=== PATIENT | female | born 1945 | race Caucasian/White ===

== ENCOUNTER → 2019-03-18 16:36 | Outpatient (CLI) | payer MEDICARE, SELFPAY | PROVIDERS: Referring Provider Otolaryngology Otolaryngology/Facial Plastic Surgery; Visit Provider Otolaryngology Otolaryngology/Facial Plastic Surgery | DX: J02.9 Acute pharyngitis, unspecified (principal) | CPT/HCPCS: 87070; 87186 ==

== ENCOUNTER → 2020-04-21 | Outpatient (CLI) | payer MEDICARE, OTHER, SELFPAY ==
--- NOTE | 2020-04-21 | TISS_PTH ---
PATIENT: SHANNON MCCORD [facility]: [facility] U#:[id number] AGE/SX: 75/F ROOM: RE04/21/[address]: Dr. Jarrod Castro DDS : 1945 BED: DIS: 04/21/2020 SPEC #: [id number] RECD: 04/21/20 13:46 STATUS: SUNG RECatrina #: [id number] LUKAS: 04/21/20 00:[address]: Jarrod Castro DEPT: SURGICAL PATHOLOGY RECD BY: Angela Castorena ENTERED: 04/22/20 08:24 SP TYPE: Tissue Bx OTHR DR: No Primary Care Phys Tissues: Maxilla, NOS Procedures: Surgery Specimen Level IV HEADER OPERATION: Biopsy maxilla PRE-OP DIAGNOSIS: TISSUE SUBMITTED: Probable granulation/granuloma tissue from previous surgery many years ago. See if metallic substance in biopsy specimen is possible foreign body MICROSCOPIC DIAGNOSIS Maxilla, tooth area 7, biopsy: Fragments of dense fibroconnective tissue with reactive changes. Negative for malignancy. See comment. PUNEET:lizzy 04/25/20 COMMENT A few fragments black amorphous material are noted. Case has been reviewed in consultation with Dr. Silva who concurs with the above diagnosis. IDC:AM MICROSCOPIC DESCRIPTION Slides are reviewed. GROSS DESCRIPTION Received in fixative is one container labeled with the patient's name and designated tooth area 7. The specimen consists of two irregular fragments of barron, indurated tissue that in aggregate measure 0.8 x 0.3 x 0.2 cm. The specimen is totally submitted in one cassette. / PUNEET:lizzy 04/22/20 TC:5 CPT: 32873
== END | disposition home or self-care (01) ==
LOC: LABSPEC 13:59
PROVIDERS: Visit Provider Dentist Oral and Maxillofacial Surgery
DX: L94.9 Localized connective tissue disorder, unspecified (principal)
CPT/HCPCS: 88305

== ENCOUNTER → 2020-07-08 06:18 | Outpatient (CLI) | payer MEDICARE, OTHER, SELFPAY ==
--- NOTE | 2020-07-08 06:24 | ECHOD_ITS ---
Reason For Study: Chest Pain Procedure This was a 2D Doppler, Color Flow transthoracic echocardiogram. The study was technically difficult. Exam performed in department. Left Ventricle Normal LV size. Left ventricular systolic function is normal. The estimated ejection fraction is 65 %. No evidence for diastolic dysfunction. No regional wall motion abnormalities noted. Right Ventricle Normal RV size. Normal systolic function. Atria Normal left atrium. Normal right atrium. No doppler evidence for ASD. Mitral Valve There is mild mitral annular calcification. Mild focal mitral valve calcification of the anterior leaflet. Mild (1+) mitral valve insufficiency. Tricuspid Valve Normal tricuspid valve. Mild (1+) tricuspid valve insufficiency. Right ventricular systolic pressure estimated to be 29 mmHg. Aortic Valve Trisinus/trileaflet aortic valve. Mild focal aortic valve calcification. Mild (1+) aortic valve insufficiency. Pulmonic Valve The pulmonic valve is not well visualized. Great Vessels Normal sized aortic root. Pericardium/Pleural No pericardial effusion. MMode/2D Measurements & Calculations LVIDd: 4.2 cm IVSd: 1.3 cm Ao root diam: 3.2 cm LVIDs: 2.6 cm LVPWd: 1.2 cm LA dimension: 3.0 cm RVDd: 2.5 cm FS: 37.8 % LAV(MOD-bp): 38.4 ml LVAd ap4: 18.6 cm2 SV(MOD-sp4): 29.7 ml LAV(MOD-bp) Indexed: 22.6 ml/m2 EDV(MOD-sp4): 43.3 ml LAV(MOD-sp2): 45.9 ml EDV(sp4-el): 44.7 ml LAV(MOD-sp4): 27.9 ml LVAs ap4: 9.2 cm2 ESV(MOD-sp4): 13.6 ml ESV(sp4-el): 13.5 ml EF(MOD-sp4): 68.6 % EF(sp4-el): 69.7 % SV(sp4-el): 31.2 ml LA A4 area: 12.0 cm2 RA A4 area: 9.7 cm2 Doppler Measurements & Calculations MV E max flavio: 50.6 cm/sec Lat Peak E' Flavio: 9.4 cm/sec Med Peak E' Flavio: 6.5 cm/sec MV A max flavio: 85.7 cm/sec E/E' lat: 5.4 E/E' med: 7.8 MV E/A: 0.59 Ao V2 max: 148.4 cm/sec AI max flavio: 436.6 cm/sec LV V1 max: 120.0 cm/sec Ao max P.8 mmHg AI max P.4 mmHg LV V1 max P.8 mmHg Ao V2 mean: 106.3 cm/sec AI dec slope: 267.4 cm/sec2 Ao mean P.9 mmHg AI P1/2t: 478.3 msec Ao V2 VTI: 31.0 cm PA V2 max: 103.0 cm/sec TR max flavio: 253.0 cm/sec TR max P.6 mmHg Interpretation Summary The study was technically difficult. Left ventricular systolic function is normal. The estimated ejection fraction is 65 %. There is mild mitral annular calcification. Mild focal mitral valve calcification of the anterior leaflet. Mild (1+) mitral valve insufficiency. Mild (1+) tricuspid valve insufficiency. Mild focal aortic valve calcification. Mild (1+) aortic valve insufficiency. Right ventricular systolic pressure estimated to be 29 mmHg. No evidence for diastolic dysfunction. Ordering Physician: Maribell Sanchez Referring Physician: Maribell Sanchez Performed By: Danielle Gaffney, RDCS, RVT
--- NOTE | 2020-07-08 08:55 | STRESSREP ---
Stress Test Report Date: 07-08-2020 Procedure: Pharmacologic stress nuclear imaging study Indications: Chest pain; shortness of breath/dyspnea on exertion Consent: Per the patient Procedure: The patient underwent pharmacologic (Regadenoson 0.4mg ) evaluation with a peak heart rate of 91 beats per minute (62%predicted maximal heart rate) and a peak blood pressure of 144/82 mmHg. The baseline ECG demonstrated normal sinus rhythm. The peak pharmacologic ECG demonstrated no obvious ECG changes. There were no cardiac dysrhythmias pretest, during pharmacologic infusion, or recovery. There was no complaint of chest discomfort during pharmacologic infusion or recovery. The examination was discontinued secondary to completion of protocol. Impression: 1. Pharmacologic (Regadenoson) evaluation 2. Peak pharmacologic ECG with no obvious ECG changes. 3. There were no cardiac dysrhythmias pretest, during pharmacologic infusion, or recovery. 4. Nuclear images pending Myocardial perfusion imaging study: Technique: The patient was injected with 11.7 millicuries of technetium 99m Cardiolite and subsequently rest SPECT Cardiolite nuclear imaging was obtained in the horizontal long, vertical long, and short axis views. The patient underwent pharmacologic (Regadenoson) evaluation with a peak heart rate of 91 beats per minute (62% percent predicted maximal heart rate) and a peak blood pressure of 144/82 mmHg. The patient was injected with 36.0 millicuries of technetium 99m Cardiolite and subsequently stress SPECT Cardiolite nuclear imaging was obtained in the horizontal long, vertical long, and short axis views. A gated Cardiolite study at peak stress was obtained. Interpretation: Rest and stress SPECT Cardiolite nuclear imaging status post realignment, normalization, and attenuation correction demonstrate relative uniform tracer uptake and myocardial perfusion appearing within normal limits. There is end systolic thickening and brightening. The gated Cardiolite study demonstrates myocardial thickening and inward wall motion. The reported LVEF is 82%. Impression: 1. Rest and stress SPECT Cardiolite nuclear imaging demonstrate relative uniform tracer uptake and myocardial perfusion appearing within normal limits. 2. The gated Cardiolite study reports an LVEF of 82%. This note was generated with AI Merchant[employer] software. It may contain incorrect words, spelling, and punctuation that were not noted in checking the note before signing.
== END ==
PROVIDERS: PCP Internal Medicine; Referring Provider Internal Medicine; Visit Provider Internal Medicine
DX: R07.9 Chest pain, unspecified (principal); R06.00 Dyspnea, unspecified
CPT/HCPCS: 78452; 93017; 93306; A9500; A4216; J2785

== ENCOUNTER 2020-08-20 01:03 | Emergency (ER) | payer MEDICARE, OTHER, SELFPAY ==
[2020-08-20 01:05] VITALS: BP 181/95; PULSE 75; RESP 18; TEMP 36.3; O2SAT 98; BMI 32.0
--- NOTE | 2020-08-20 01:05 | ED.RN ---
NO OLD EKGS IN MUSE
--- NOTE | 2020-08-20 01:12 | RAD_ITS ---
STUDY: X-RAY CHEST REASON FOR EXAM: Female, 75 years old. chest pain TECHNIQUE: Single AP portable view of the chest. COMPARISON: None. FINDINGS: The lungs are clear and expanded. There is no demonstrated pleural abnormality. Normal size heart. Normal mediastinum and sabi. Normal visualized pulmonary arteries. Normal visualized aortic arch and descending thoracic aorta. Normal visualized thoracic spine. Normal visualized ribs, clavicles, and shoulders. There is no demonstrated abnormality of the visualized soft tissue structures of the upper abdomen. RAD/Chest 1 View (Portable) IMPRESSION: Normal x-ray examination of the chest. Electronically Signed: Elvin Rapp DO at 1:46 EDT Tel , Service support ,
--- NOTE | 2020-08-20 01:12 | EKG12_ITS ---
Test Reason : CP Blood Pressure : / mmHG Vent. Rate : 077 BPM Atrial Rate : 077 BPM P-R Int : 138 ms QRS Dur : 076 ms QT Int : 382 ms P-R-T Axes : 033 014 035 degrees QTc Int : 432 ms Normal sinus rhythm Nonspecific ST abnormality Abnormal ECG Confirmed by BETO MINER, FLY ([id number]), editor continuity and script ABDOULAYE PAGE ([id number]) on 08/24/2020 10:51:42 AM Referred By: PHIL Confirmed By:FLY PÉREZ MD
--- NOTE | 2020-08-20 01:14 | ED.DCSUM_ITS ---
History of Present Illness Chief Complaint: Chest Pain Informant: Patient, Family Onset: Yesterday Narrative: Patient presents with discomfort epigastric region wrapping around to her back since yesterday morning. Symptoms waxing and waning throughout the day however never went away. She states she is nauseated, no vomiting. No diarrhea. Denies pain into the chest region. States feels tightness. History of hypertension hyperlipidemia. Reported history of TIA in the 90s. She does not take aspirin. She is on blood pressure cholesterol and reflux medicine. Denies any cardiac history. States symptoms 6 out of 10 however tolerable. Reports history of cholecystectomy, was able to eat little bit today. Symptoms more worsening this evening. States this evening she closed her head eyes did transiently feel the room spinning, however denies none currently. Patient just had a nuclear stress test and echocardiogram July 03 of this year. Normal nuclear stress echo with EF of 65%, there is 1+ insufficiency of the aortic mitral and tricuspid valve noted on the report. Prior similar symptoms: Yes Past Medical History - Allergies and Home Meds Allergies/Adverse Reactions: Allergies codeine Adverse Reaction (Verified 08/20/20 01:05) Nausea Primary Care Physician: Maribell Sanchez MD [Primary Care Provider] - Past Medical History: - - Hypertension, hyperlipidemia, GERD, TIA Surgical History: cholecystectomy Review of Systems General: Denies: Chills, Fever, Sweats Eyes: Denies: Visual changes - bilaterally, Diplopia ENT: Denies: Rhinorrhea, Sore throat Cardiovascular: Denies: Chest pain, Palpitations Respiratory: Denies: Dyspnea, Cough, Dyspnea on exertion Gastrointestinal: Reports: Abdominal pain, Nausea. Denies: Vomiting, Diarrhea, Melena, Hematochezia Genitourinary: Denies: Dysuria, Hematuria, Frequency Musculoskeletal: Denies: Back pain, Extremity Pain Skin: Denies: Rash, Wounds Neurological: Denies: Headache, Weakness, Numbness Physical Exam Vital Signs/Narrative: Vital Signs Temp Pulse Resp BP Pulse Ox 08/20/20 01:05 97.4 F L 75 18 181/95 H 98 Inital Vital Signs reviewed: Yes General: Well nourished - ., Well developed, No Acute Distress Head: Normocephalic, Atraumatic Eyes: Perrl, EOMI ENT: Moist mucous membranes, No rhinorrhea Neck: Supple, Nontender Cardiovascular: Regular rate, Regular rhythm, No murmurs Respiratory: No distress, CTA bilaterally, Chest nontender Abdomen: Soft, Nondistended, Normal bowel sounds, Tender, - - Reproducible epigastric tenderness no guarding or rebound, negative Gomez's or McBurney's tenderness. Back: Nontender, Normal Inspection Extremities: Nontender, No edema Skin: Normal color, No rash Neurological: Alert, Oriented x3, Cranial nerves II-XII grossly intact, Normal Strength, Normal Sensation Psychological: Normal affect, Normal Mood Diagnostic/Tx/Re-eval Chest X-Ray - ED: 1 View, Read by ED Physician, Read by Radiologist, No Acute Disease Clinical Impression(s) from Imaging Studies Chest X-Ray 08/20/20 01:12 IMPRESSION: Normal x-ray examination of the chest. Electronically Signed: Elvin Rapp DO at 1:46 EDT Tel , Service support , Abnormal Lab Results 08/20/20 08/20/20 08/20/20 01:10 01:10 01:10 WBC 8.3 RBC 3.63 L Hgb 11.2 L Hct 35.0 L MCV 96.4 MCH 30.9 MCHC 32.0 RDW Std Deviation 54.1 H RDW Coeff of Bradley 15.3 H Plt Count 221 MPV 8.9 Immature Gran % (Auto) 0.200 Neut % (Auto) 45.5 L Lymph % (Auto) 41.6 H [place] % (Auto) 10.0 Eos % (Auto) 2.2 Baso % (Auto) 0.5 Absolute Neuts (auto) 3.8 Absolute Lymphs (auto) 3.44 Nucleated RBC % 0 PT 12.7 INR 1.0 APTT 30.8 Sodium 137 Potassium 3.9 Chloride 107 Carbon Dioxide 26.0 Anion Gap 4 L BUN 20 H Creatinine 0.99 Estim Creat Clear Calc 38.83 Est GFR (MDRD) Af Amer 70 Est GFR (MDRD) Non-Af 58 L BUN/Creatinine Ratio 20.1 H Glucose 112 H Calcium 9.1 Total Bilirubin 0.30 AST 22 ALT 38 Alkaline Phosphatase 99 Troponin I < 0.015 Total Protein 7.7 Albumin 3.7 Globulin 4.0 Albumin/Globulin Ratio 0.9 Lipase 255 - EKG Initial EKG Interpretation: Sinus Rhythm - EKG sinus rate of 77, no ST or T wave changes. - Medical Decision Making Patient epigastric tenderness with no guarding or rebound. EKG cardiac work-up negative I did obtain abdominal labs also normal. Is given Zofran for reevaluation states symptoms mildly worsen. Given GI cocktail with improvement of symptoms. She states has been recent dealing with diarrhea worked up with her PCP as an outpatient with stool studies negative. She is placed on pantoprazole at that time daily. She denies any melena or rectal bleed. Discussed at this time will increase her pantoprazole to twice a day we will add Carafate for 2 weeks. She does have cardiac risk factors, she had a normal stress test less than 2 months ago, I discussed with patient obtain a delta troponin however she declines at this time. Reevaluation abdomen was soft and benign. She will follow-up with her PCP with strict return precautions. All questions were answered. ED Disposition - Plan for ED Patient: Disposition: Home or Assisted Living Diagnosis: Atypical chest pain, Gastritis Instructions: ED Chest Pain, Uncertain Cause, ED Gastritis (Adult) Prescriptions: Sucralfate [Carafate] 1 gm PO 4X/DAY #60 tab Transmission Status: Pending to [id number] Referrals: Maribell Sanchez MD [Primary Care Provider] - 5-7 Days Additional Instructions: increase your pantopropazole to twice a day for next 2 weeks
[2020-08-20 01:18] LABS: Absolute Lymphocyte Count 3.44 X10^3/uL (0.83-4.51); Absolute Neutrophil Count 3.8 X10^3/uL (2.0-7.7); Basophil# 0.04 X10^3/uL; Basophil% 0.5 % (0-1); Eosinophil# 0.18 X10^3/uL; Eosinophils% 2.2 % (0-5); Hemoglobin 11.2 g/dL (12.0-15.0); Lymphocyte # 3.44 X10^3/ul (4.0); Lymphocyte % 41.6 % (19-41); Mean Corpuscular Hgb 30.9 pg (27.0-32.0); Mean Corpuscular Volume 96.4 fL (81-99); Mean Platelet Vol. 8.9 fl (6.2-12.0); Monocyte# 0.83 X10^3/uL; NRBC Flagged by Analyzer 0 % (0-5); Neutrophil # 3.75 X10^3/uL (2.7-7.7); Neutrophil % 45.5 % (47-70); Platelet Count 221 K/mm3 (150-450); RBC Distribution Width CV 15.3 % (11.6-14.6); RBC Distribution Width SD 54.1 fl (35.1-43.9); Red Blood Count 3.63 M/mm3 (4.2-5.4); White Blood Count 8.3 K/mm3 (4.4-11.0)
[2020-08-20] MEDS: Ondansetron 4 MG/2 ML Vial IV (01:20)
[2020-08-20 01:27] LABS: Prothrombin Time (Protime)PT. 12.7 SECONDS (11.7-14.9)
[2020-08-20 01:28] LABS: Partial Thromboplast Time 30.8 Seconds (24.1-36.2)
[2020-08-20 01:33] LABS: ALB/GLOB Ratio 0.9 RATIO (0.9-2.4); AST(SGOT) 22 U/L (15-37); Alanine Aminotransfer ALT/SGPT 38 U/L (13-56); Albumin, Serum 3.7 g/dL (3.2-5.0); Alkaline Phosphatase 99 U/L (45-117); Anion Gap 4 (5-15); BUN 20 mg/dL (7-18); BUN/Creat Ratio 20.1 RATIO (10-20); Calcium,Total 9.1 mg/dL (8.5-10.1); Chloride 107 mmol/L (98-107); Creatinine, Serum 0.99 mg/dL (0.55-1.02); EST Glomerular Filtration Rate 58 mL/min (>60); Est Glom Filt Rate - Afr Amer 70 mL/min (>60); Estimated Creatinine Clearance 38.83 ml/min; Glucose 112 mg/dL (74-106); Lipase 255 U/L (73-393); Potassium 3.9 mmol/L (3.5-5.1); Protein, Total 7.7 g/dL (6.4-8.2); Sodium Level 137 mmol/L (136-145)
[2020-08-20] MEDS: Mag Hydrox/Al Hydrox/Simeth 30 ML UDC PO (02:08)
[2020-08-20 02:30] VITALS: BP 148/91; PULSE 72; RESP 16; O2SAT 95
== END 2020-08-20 02:34 | disposition home or self-care (01) ==
PROVIDERS: Emergency Provider Emergency Medicine; PCP Internal Medicine
DX: K29.70 Gastritis, unspecified, without bleeding (principal); R07.89 Other chest pain; I10 Essential (primary) hypertension; E78.5 Hyperlipidemia, unspecified; K21.9 Gastro-esophageal reflux disease without esophagitis; Z79.899 Other long term (current) drug therapy
CPT/HCPCS: 71045; 80053; 83690; 84484; 85025; 85610; 85730; 93005; 96361; 96374; 99285; J7040; A4216; J2405

== ENCOUNTER → 2021-04-10 | Outpatient (CLI) | payer MEDICARE, OTHER, SELFPAY ==
[2021-04-10 16:07] LABS: D-Dimer Quantitative (DVT/PE) 0.99 FEU/ug/m (0.27-0.49)
== END | disposition home or self-care (01) ==
LOC: LABSPEC 15:06
PROVIDERS: PCP Internal Medicine; Visit Provider Nurse Practitioner
DX: R06.02 Shortness of breath (principal); R07.9 Chest pain, unspecified
CPT/HCPCS: 85379

== ENCOUNTER 2021-06-22 10:23 | Emergency (ER) | payer MEDICARE, OTHER, SELFPAY ==
[2021-06-22 10:23] VITALS: BP 169/91; PULSE 79; RESP 18; TEMP 35.7; O2SAT 98; BMI 27.4
--- NOTE | 2021-06-22 10:46 | EKG12_ITS ---
Test Reason : CP Blood Pressure : / mmHG Vent. Rate : 075 BPM Atrial Rate : 075 BPM P-R Int : 146 ms QRS Dur : 074 ms QT Int : 380 ms P-R-T Axes : 044 002 031 degrees QTc Int : 424 ms Normal sinus rhythm Normal ECG Confirmed by VITA MINER, PJ ([id number]), field map editor ABDOULAYE PAGE ([id number]) on 06/23/2021 10:58:23 AM Referred By: ALICIA Confirmed By:PJ GORMAN MD
--- NOTE | 2021-06-22 10:52 | RAD_ITS ---
STUDY: X-RAY CHEST REASON FOR EXAM: Female, 76 years old. Chest pain TECHNIQUE: Single AP portable view of the chest. COMPARISON: Comparison is made with prior study dated 08/20/2020. FINDINGS: EKG electrodes are seen. Stable mild increased linear markings at the lung bases suggest some mild basilar scarring. There is no demonstrated pleural abnormality. There is borderline cardiomegaly. Normal mediastinum and sabi. Normal visualized pulmonary arteries. There is atherosclerotic tortuosity of the aortic arch and descending thoracic aorta. Normal visualized thoracic spine. Normal visualized ribs, clavicles, and shoulders. There is no demonstrated abnormality of the visualized soft tissue structures of the upper abdomen. RAD/Chest 1 View (Portable) IMPRESSION: Findings suggestive of mild bibasilar scarring. Electronically Signed: Raheel Parikh MD at 11:03 EST ,
[2021-06-22 10:56] LABS: Absolute Neutrophil Count 3.1 X10^3/uL (2.0-7.7); Basophil# 0.04 X10^3/uL; Basophil% 0.7 % (0-1); Eosinophil# 0.21 X10^3/uL; Eosinophils% 3.5 % (0-5); Hematocrit 37.2 % (37-47); Hemoglobin 12.6 g/dL (12.0-15.0); Lymphocyte % 36.2 % (19-41); Mean Corp Hgb Conc 33.9 g/dL (32-36); Mean Corpuscular Hgb 33.8 pg (27.0-32.0); Mean Corpuscular Volume 99.7 fL (81-99); Mean Platelet Vol. 9.2 fl (6.2-12.0); Monocyte# 0.56 X10^3/uL; Monocyte% 9.2 % (0-10); NRBC Flagged by Analyzer 0 % (0-5); Neutrophil # 3.05 X10^3/uL (2.7-7.7); Neutrophil % 50.2 % (47-70); Platelet Count 218 K/mm3 (150-450); RBC Distribution Width CV 14.3 % (11.6-14.6); RBC Distribution Width SD 52.4 fl (35.1-43.9); Red Blood Count 3.73 M/mm3 (4.2-5.4); White Blood Count 6.1 K/mm3 (4.4-11.0)
[2021-06-22 11:17] LABS: Anion Gap 5 (5-15); BUN 18 mg/dL (7-18); BUN/Creat Ratio 16.8 RATIO (10-20); Calcium,Total 9.4 mg/dL (8.5-10.1); Chloride 110 mmol/L (98-107); Creatinine, Serum 1.07 mg/dL (0.55-1.02); EST Glomerular Filtration Rate 53 mL/min (>60); Est Glom Filt Rate - Afr Amer 64 mL/min (>60); Estimated Creatinine Clearance 35.38 ml/min; Glucose 109 mg/dL (74-106); Potassium 3.9 mmol/L (3.5-5.1); Sodium Level 139 mmol/L (136-145); Troponin-I HS 4 pg/mL (3.0-54.0)
--- NOTE | 2021-06-22 11:19 | ED.VIS.CHEST ---
HPI History of Present Illness Chief Complaint: Chest Pain Narrative Narrative: 76-year-old female with history of TIA, hypertension, GERD, COPD, hyperlipidemia presenting with chest pain. She states that she has had chest pain multiple times in the past and has been evaluated in the emergency room many times. Patient states that she moved from [place] about a year ago and has established with a primary care physician, however on her last visit she states that she coughed 1 time and that her primary care physician told her she might had Covid and did a telephone visit over the phone. She states she has not had anything done by her primary care physician. Patient states that her chest pain is similar to what she has in the past. She describes heaviness in the center of her chest which lasts a couple of minutes in which she gets sweaty and lightheaded. She does have a mild headache. She noted today that her blood pressure was elevated at home, and her daughter believes that her blood pressure cuff is not working right because it always reads higher than the one she has when she checks her. Patient states that she is never had a stress test. She has had an echocardiogram and was told she has no cardiac problems. She does report a history of TIA in [place]. PFSH PFSH Home Medications calcium carbonate 600 mg PO DAILY 08/20/20 [History Last Taken Unknown] citalopram 20 mg PO DAILY 08/20/20 [History Last Taken Unknown] losartan 100 mg PO DAILY 08/20/20 [History Last Taken Unknown] meloxicam 7.5 mg PO DAILY 08/20/20 [History Last Taken Unknown] multivitamin 1 each PO DAILY 08/20/20 [History Last Taken Unknown] pantoprazole 40 mg PO DAILY 08/20/20 [History Last Taken Unknown] sucralfate 1 gm PO 4X/DAY #60 tab 08/20/20 [Rx Last Taken Unknown] amlodipine 5 mg PO DAILY #30 tab 06/22/21 [Rx Last Taken Unknown] Allergy/AdvReac Type Severity Reaction Status Date / Time codeine AdvReac Nausea Verified 06/22/21 10:27 Social History Smoking Status: Former smoker ROS ROS ED Constitutional Constitutional ED: Denies chills or fever(s) Eyes Eyes: Denies blurry vision or change in vision ENT ENT ED: Denies rhinorrhea or sore throat Cardiovascular Cardiovascular: Reports as per HPI Respiratory/Chest Respiratory/Chest: Denies cough or dyspnea on exertion Gastrointestinal Gastrointestinal: Denies abdominal pain, nausea or vomiting Genitourinary Genitourinary ED: Denies dysuria or hematuria Musculoskeletal Musculoskeletal: Denies arthralgias or myalgias Integumentary Denies rash Neurologic Neurologic: Reports headache(s); Denies paresthesias or weakness Psychiatric Psychiatric: Reports anxiety EXAM Physical Exam Const Vital Signs: 06/22/21 10:23 06/22/21 10:33 06/22/21 11:25 Temperature 96.3 F L Temperature Source Temporal Pulse Rate 79 Respiratory Rate 18 Respiratory Effort Normal Non-Labored Blood Pressure 169/91 H Blood Pressure Mean 117 Pulse Ox 98 Oxygen Delivery Method Room Air Room Air 06/22/21 12:27 06/22/21 13:29 Temperature Temperature Source Pulse Rate 67 66 Respiratory Rate 20 H 25 H Respiratory Effort Blood Pressure 154/91 H 147/89 H Blood Pressure Mean 112 108 Pulse Ox 95 97 Oxygen Delivery Method Room Air Room Air Positive well nourished and obese General Appearance ED: NAD; Negative for pallor Nutritional Appearance: obese HEENT Reports moist mucous membranes normocephalic and atraumatic Eyes PERRL and EOMs intact bilaterally Chest Wall inspection of chest normal and palpation of chest normal Resp normal respiratory effort Effort and Inspection: respiratory distress Cardio regular rate and regular rhythm GI normal to inspection, nondistended, normoactive bowel sounds Neuro oriented x3 and CN's II-XII intact bilaterally Sensorium / Orientation: awake and alert Motor Exam: strength 5/5 throughout Psych mental status grossly normal Skin no rashes or lesions noted and no wounds General Skin Exam: Negative for jaundice or pallor Heart Score History: Moderately Suspicious ECG: Normal Age: >/= 65 years Troponin: >/=3 x Normal Limit Score: 5 MDM MDM MDM Narrative Medical decision making narrative: Patient presenting with intermittent chest pain which sounds chronic however she has had exacerbation of this for weeks. EKG is obtained and on my interpretation this is a normal sinus rhythm with ventricular rate of 75 bpm without sign of ischemic change or dysrhythmia. Chest x-ray on my interpretation shows no acute cardiopulmonary process the radiologist agree. CBC is unremarkable. BMP shows a slight change from 58-53. High-sensitivity troponin initially is 4. Delta troponin to be obtained. CT of the brain is negative for acute intracranial process but does show chronic subdural hygromas as well as chronic involutional changes. Patient requested ibuprofen for her headache. Blood pressure is currently 147/89. I spoke with Dr. Sanchez about her elevated blood pressures. She recommended starting amlodipine 5 mg daily. Patient prescribed a prescription for this. She will take this in addition to her losartan. Patient is to keep a diary of her blood pressures at home. She has follow-up next Saturday. Patient given return precautions. Impression: 1. Headache 2. Hypertension?established [id number] 3. Chest pain noncardiac Lab Data Attestation: I reviewed the patient's lab results. Labs: Laboratory Results - last 24 hr 06/22/21 06/22/21 06/22/21 10:30 10:30 12:31 WBC 6.1 RBC 3.73 L Hgb 12.6 Hct 37.2 MCV 99.7 H MCH 33.8 H MCHC 33.9 RDW Std Deviation 52.4 H RDW Coeff of Bradley 14.3 Plt Count 218 MPV 9.2 Immature Gran % (Auto) 0.200 Neut % (Auto) 50.2 Lymph % (Auto) 36.2 [place] % (Auto) 9.2 Eos % (Auto) 3.5 Baso % (Auto) 0.7 Absolute Neuts (auto) 3.1 Absolute Lymphs (auto) 2.20 Nucleated RBC % 0 Sodium 139 Potassium 3.9 Chloride 110 H Carbon Dioxide 24.0 Anion Gap 5 BUN 18 Creatinine 1.07 H Estim Creat Clear Calc 35.38 Est GFR (MDRD) Af Amer 64 Est GFR (MDRD) Non-Af 53 L BUN/Creatinine Ratio 16.8 Glucose 109 H Calcium 9.4 Troponin I High Sens 4 5 Radiography Diagnostic Testing: Clinical Impression(s) from Imaging Studies Chest X-Ray 06/22/21 10:52 IMPRESSION: Findings suggestive of mild bibasilar scarring. Electronically Signed: Raheel Parikh MD at 11:03 EST , Brain CT 06/22/21 11:20 IMPRESSION: Chronic involutional changes of the brain. Small chronic bilateral subdural hygromas. Electronically Signed: Raheel Parikh MD at 11:50 EST , Discharge Plan Triage Chief Complaint: Chest Pain Other Complaint: Hypertension ED Provider: Pankaj Hwang Dx/Rx/DC Orders Instructions: ED Chest Pain, Noncardiac, ED Hypertension, Established Prescriptions: New amlodipine 5 mg tablet 5 mg PO DAILY Qty: 30 RF: 0 No Action multivitamin 1 EACH tablet 1 each PO DAILY RF: 0 meloxicam 7.5 MG tablet 7.5 mg PO DAILY RF: 0 calcium carbonate 600 MG tablet 600 mg PO DAILY RF: 0 citalopram 20 MG tablet 20 mg PO DAILY RF: 0 pantoprazole 40 MG tablet 40 mg PO DAILY RF: 0 losartan 100 MG tablet 100 mg PO DAILY RF: 0 sucralfate 1 GM tablet 1 gm PO 4X/DAY Qty: 60 RF: 0 Primary Care Provider: Maribell Sanchez Referrals: Maribell Sanchez MD [Primary Care Provider] - Disposition Disposition: Home, Self Care
--- NOTE | 2021-06-22 11:20 | CT_ITS ---
STUDY: CT BRAIN WITHOUT CONTRAST REASON FOR EXAM: Female, 76 years old. Headache RADIATION DOSAGE (If Supplied By Facility): CTDIvol = ( 44.99 ) mGy, DLP = ( 796.11 ) mGycm TECHNIQUE: Transaxial CT imaging of the brain was performed without administration of intravenous contrast material. Individualized dose optimization techniques were used for this CT. COMPARISON: No relevant priors. FINDINGS: Normal soft tissue structures. Normal calvarium. There is moderate cerebral atrophy with widening of the extra-axial spaces and ventricular dilatation. Prominence of the subdural spaces bilaterally suggestive of chronic subdural hygromas. There are areas of decreased attenuation within the white matter tracts of the supratentorial brain, consistent with microvascular disease changes. Normal basal ganglia and thalami. Normal brainstem. Normal cerebellum. There is no intracranial hemorrhage. There are no findings of an acute ischemic infarction. Atherosclerotic calcification of the cavernous portions of the internal carotid arteries and vertebral arteries. Normal visualized paranasal sinuses. CT/Brain/Head without Contrast IMPRESSION: Chronic involutional changes of the brain. Small chronic bilateral subdural hygromas. Electronically Signed: Raheel Parikh MD at 11:50 EST ,
[2021-06-22 12:27] VITALS: BP 154/91; PULSE 67; RESP 20; O2SAT 95
[2021-06-22 12:54] LABS: Troponin-I HS 5 pg/mL (3.0-54.0)
[2021-06-22 13:29] VITALS: BP 147/89; PULSE 66; RESP 25; O2SAT 97
[2021-06-22] MEDS: amLODIPine 5 MG Tablet PO (13:32)
== END 2021-06-22 13:38 | disposition home or self-care (01) ==
PROVIDERS: Emergency Provider Student in an Organized Health Care Education/Training Program; PCP Internal Medicine; Visit Provider Student in an Organized Health Care Education/Training Program
DX: I10 Essential (primary) hypertension (principal); J44.9 Chronic obstructive pulmonary disease, unspecified; R51.9 Headache, unspecified; R07.89 Other chest pain; E78.5 Hyperlipidemia, unspecified; E66.9 Obesity, unspecified; K21.9 Gastro-esophageal reflux disease without esophagitis; Z79.899 Other long term (current) drug therapy; Z86.73 Personal history of transient ischemic attack (TIA), and cerebral infarction without residual deficits; Z87.891 Personal history of nicotine dependence
CPT/HCPCS: 36415; 70450; 71045; 80048; 84484; 85025; 93005; 99285; A4216

== ENCOUNTER → 2022-05-30 | Outpatient (CLI) | payer MEDICARE, OTHER, SELFPAY ==
[2022-05-30 17:58] LABS: Hematocrit 38.4 % (37-47); Hemoglobin 12.5 g/dL (12.0-15.0); Mean Corp Hgb Conc 32.6 g/dL (32-36); Mean Corpuscular Hgb 33.3 pg (27.0-32.0); Mean Corpuscular Volume 102.4 fL (81-99); Mean Platelet Vol. 9.4 fl (6.2-12.0); Platelet Count 205 K/mm3 (150-450); RBC Distribution Width CV 13.8 % (11.6-14.6); RBC Distribution Width SD 52.5 fl (35.1-43.9); Red Blood Count 3.75 M/mm3 (4.2-5.4); White Blood Count 7.3 K/mm3 (4.4-11.0)
[2022-05-30 18:13] LABS: Vitamin B12 389 pg/mL (211-911)
[2022-05-30 18:22] LABS: Glucose 106 mg/dL (74-106)
[2022-05-30 18:23] LABS: ALB/GLOB Ratio 0.9 RATIO (0.9-2.4); AST(SGOT) 31 U/L (15-37); Alanine Aminotransfer ALT/SGPT 41 U/L (13-56); Albumin, Serum 3.6 g/dL (3.2-5.0); Alkaline Phosphatase 87 U/L (45-117); Anion Gap 7 (5-15); BUN 13 mg/dL (7-18); Calcium,Total 9.2 mg/dL (8.5-10.1); Chloride 105 mmol/L (98-107); Creatinine, Serum 0.81 mg/dL (0.55-1.02); EST Glomerular Filtration Rate 72 mL/min (>60); Est Glom Filt Rate - Afr Amer 88 mL/min (>60); Globulin 4.1 g/dL (2.2-4.2); Potassium 4.1 mmol/L (3.5-5.1); Protein, Total 7.7 g/dL (6.4-8.2); Sodium Level 139 mmol/L (136-145); Thyroid Stim Hormone (TSH) 1.19 uIU/mL (0.358-3.74)
[2022-06-02 17:07] LABS: Free Kappa Light Chains 38.2 mg/L (3.3-19.4); Free Lambda Light Chains 25.7 mg/L (5.7-26.3)
[2022-06-03 09:20] LABS: Vitamin B1, Thiamine 99.8 nmol/L (66.5-200.0)
== END | disposition home or self-care (01) ==
PROVIDERS: PCP Internal Medicine; Referring Provider Psychiatry & Neurology Neurology; Visit Provider Psychiatry & Neurology Neurology
DX: G62.9 Polyneuropathy, unspecified (principal); F03.90 Unspecified dementia, unspecified severity, without behavioral disturbance, psychotic disturbance, mood disturbance, and anxiety; I10 Essential (primary) hypertension
CPT/HCPCS: 36415; 80053; 82607; 82746; 83883; 84425; 84443; 85027

== ENCOUNTER → 2022-06-19 | Outpatient (CLI) | payer MEDICARE, OTHER, SELFPAY ==
--- NOTE | 2022-06-19 15:33 | MRI_ITS ---
STUDY: MRI BRAIN WITHOUT CONTRAST REASON FOR EXAM: Female, 77 years old. 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 COMPARISON: CT head 06/22/2021. BRAIN AND EXTRA-AXIAL SPACES: No intracranial mass, mass effect, or midline shift. No hemorrhage, territorial infarct or acute ischemia. Trace T2 signal hyperintensity in the white matter consistent with microvascular ischemia. Mild cerebral atrophy with widening of the extra-axial spaces and ventricular dilation. Basal cisterns are unremarkable. SELLA: Pituitary gland is normal in height. AUDITORY SYSTEM: Unremarkable. BONES/JOINTS: Unremarkable. SINUSES: Unremarkable as visualized. Clear. MASTOID AIR CELLS: Unremarkable as visualized. Clear. ORBITS: Unremarkable as visualized. VASCULATURE: Normal flow voids in the major intracranial circulation. MRI/Brain without Contrast IMPRESSION: 1. No acute findings. 2. Trace microvascular ischemic changes. Atrophy. Electronically Signed: Frannie Olvera MD at 17:55 EST Reading Location ID and State: [id number] / Tel , Service support ,
== END | disposition home or self-care (01) ==
LOC: MRI 15:33
PROVIDERS: PCP Internal Medicine; Visit Provider Psychiatry & Neurology Neurology
DX: F03.90 Unspecified dementia, unspecified severity, without behavioral disturbance, psychotic disturbance, mood disturbance, and anxiety (principal)
CPT/HCPCS: 70551

== ENCOUNTER → 2022-10-02 | Outpatient (CLI) | payer MEDICARE, OTHER, SELFPAY ==
[2022-10-05 14:10] LABS: Albumin 3.8 g/dL (2.9-4.4); Alpha-1-Globulins 0.2 g/dL (0.0-0.4); Gamma Globulin 1.2 g/dL (0.4-1.8); Immunofixation Urine Comment: (.); Immunoglobulin A 475 mg/dL (64-422); Immunoglobulin G 1149 mg/dL (586-1602); Immunoglobulin M 52 mg/dL (26-217); PROEL- TOTAL PROTEIN 7.6 g/dL (6.0-8.5)
== END | disposition home or self-care (01) ==
LOC: MTLAB 14:58
PROVIDERS: PCP Internal Medicine; Referring Provider Psychiatry & Neurology Neurology; Visit Provider Psychiatry & Neurology Neurology
DX: G62.9 Polyneuropathy, unspecified (principal)
CPT/HCPCS: 36415; 82784; 84165; 86334; 86335

== ENCOUNTER → 2023-01-31 | Outpatient (CLI) | payer MEDICARE, OTHER, SELFPAY ==
--- NOTE | 2023-01-31 14:16 | RAD_ITS ---
INDICATION: low back pain; prior lumbar surgery EXAMINATION/TECHNIQUE: X-RAY - XR Spine Lumbar 2 or 3 Views: AP and lateral views COMPARISON: No comparison imaging received FINDINGS: Posterior spinal fusion hardware spanning from L3 through bilateral sacroiliac joints. Hardware appears intact, with adjacent osseous graft material. Status post discectomy L3-4 and L4-5. No acute fracture identified. Preserved lumbar lordosis with mild levoscoliosis. Symmetric bilateral hips with preserved joint spaces. Nonobstructive bowel gas pattern. Atherosclerotic calcifications noted. RAD/Lumbar Spine 2 or 3 Views IMPRESSION: Postop changes lumbosacral spine as described above with mild levoscoliotic curvature. Electronically Signed: Ivan Price MD at 5:26 EDT ,
== END | disposition home or self-care (01) ==
LOC: MTRAD 14:15
PROVIDERS: PCP Internal Medicine; Visit Provider Psychiatry & Neurology Neurology
DX: M54.50 Low back pain, unspecified (principal)
CPT/HCPCS: 72100

== ENCOUNTER → 2023-03-14 | Outpatient (CLI) | payer MEDICARE, OTHER, SELFPAY ==
--- NOTE | 2023-03-14 11:05 | NEURO ---
NCS and/or EMG Patient Report Ordering Doctor: Sarabjit Martinez DATE OF SERVICE: 03/14/23 Clinical Summary: This is a 77 year old female presenting with complaints of numbness in the distal lower extremities. This EMG/NCS was performed to evaluate for peripheral polyneuropathy. Nerve Conduction Studies Summary: All SNAP's were absent bilaterally. The left peroneal-EDB CMAP amplitude was reduced. The right peroneal motor conduction velocity was reduced. The tibial and peroneal F-wave onset latencies were prolonged bilaterally. Needle Examination Summary: Needle examination demonstrates increased insertional activity and/or spontaneous activity (positive sharp waves) in the medial gastrocnemius and flexor digitorum longus muscles bilaterally. There was a higher proportion of motor unit action potentials with reduced recruitment, increased amplitude, increased duration, and polyphasia in the right vastus lateralis, bilateral tibialis anterior, bilateral peroneus longus, and right flexor digitorum longus muscles. Reduced motor unit firing rates were seen in the left flexor digitorum longus, which can be seen in the setting of pain intolerance and/or reduced effort. Impression: There is electrodiagnostic evidence of the following - 1) Predominantly axonal, length-dependent, peripheral polyneuropathy with active denervation 2) Chronic, right L4 radiculopathy Procedures Neurology CF Procedures [id number]: 64387-87 Musc test done w/n test comp (interp) (2) Multi Select Codes Neurology Neurology Interp Codes: 10146-92 Musc test done w/n test comp (interp) (2) and 61595-63 Nr cnd test 9-10 studies (interp)
== END | disposition home or self-care (01) ==
LOC: PSN 09:24
PROVIDERS: PCP Internal Medicine; Referring Provider Psychiatry & Neurology Neurology; Visit Provider Psychiatry & Neurology Neurology
DX: M54.16 Radiculopathy, lumbar region (principal); G62.9 Polyneuropathy, unspecified
CPT/HCPCS: 95886; 95911

== ENCOUNTER 2023-04-25 13:13 | Emergency (ER) | payer MEDICARE, OTHER, SELFPAY ==
[2023-04-25 13:14] VITALS: BP 136/78; PULSE 78; RESP 14; TEMP 36.3; O2SAT 99; BMI 28.3
--- NOTE | 2023-04-25 13:45 | RAD_ITS ---
STUDY: X-RAY - LEFT ELBOW REASON FOR EXAM: Female, 78 years old. Elbow pain following a fall. TECHNIQUE: 4 view(s) of the elbow. COMPARISON: None. FINDINGS: Nondisplaced fracture of the radial head. Normal radiocapitellar and ulnotrochlear articulations. Small elbow joint effusion. RAD/Elbow min 3 Views IMPRESSION: Nondisplaced fracture of the radial head with evidence of a joint effusion. Electronically Signed: Raheel Parikh MD at 14:32 EST ,
--- NOTE | 2023-04-25 13:45 | RAD_ITS ---
STUDY: X-RAY - LEFT WRIST REASON FOR EXAM: Female, 78 years old. Pain following a fall. TECHNIQUE: 3 view(s) of the wrist were obtained. COMPARISON: None. FINDINGS: Tiny bony density is seen adjacent to the ulnar styloid. This may represent a tiny avulsion. Normal radiocarpal articulation. Normal distal radioulnar articulation. Normal carpal bones. Normal carpal articulations. Normal carpometacarpal articulation of the thumb. Normal second through fifth carpometacarpal articulations. Normal visualized metacarpal bones. Soft tissue swelling. RAD/Wrist min 3 Views IMPRESSION: Tiny bony fragment adjacent to the ulnar styloid suggestive of a tiny avulsion fracture. Overlying soft tissue swelling. Electronically Signed: Raheel Parikh MD at 14:31 EST ,
--- NOTE | 2023-04-25 13:45 | RAD_ITS ---
STUDY: X-RAY - LEFT SHOULDER REASON FOR EXAM: Female, 78 years old. Shoulder pain following a fall. TECHNIQUE: 4 view(s) of the shoulder. COMPARISON: None. FINDINGS: Normal glenohumeral articulation. Normal acromioclavicular joint. Normal acromion. Normal humeral head and visualized proximal humerus. The soft tissue structures are unremarkable. Normal visualized pulmonary apex. RAD/Shoulder min 2 Views IMPRESSION: Normal x-ray examination of the shoulder. Electronically Signed: Raheel Parikh MD at 14:33 EST ,
--- NOTE | 2023-04-25 13:49 | EX.ED.UPPERE ---
HPI History of Present Illness Chief Complaint: Upper Extremity Injury Detail of Chief Complaint: Fall with injury to left arm Informant: patient Narrative Narrative: Patient presents to the emergency department with a fall that occurred yesterday. Patient states that she was in a hurry and lost her balance and fell on the concrete. Deny striking her head or loss of consciousness. She injured her left arm. She is right-hand dominant. Denies any other injuries. [facility] Medical History (Updated 04/25/23 @ 14:[address] Mat Mcghee, ) Altered bowel habits Colonoscopy planned COPD (chronic obstructive pulmonary disease) Dyslipidemia Hiatal hernia Hypertension Memory change Neuropathic pain of both feet Peripheral nerve disease Spondylolisthesis, lumbar region Stroke Home Medications calcium carbonate 600 mg calcium (1,500 mg) tablet 600 mg PO DAILY 08/20/20 [History Last Taken Unknown] losartan 100 mg tablet 100 mg PO DAILY 08/20/20 [History Last Taken Unknown] multivitamin 1 each PO DAILY 08/20/20 [History Last Taken Unknown] pantoprazole 40 mg tablet,delayed release 40 mg PO DAILY 08/20/20 [History Last Taken Unknown] amlodipine 5 mg tablet 5 mg PO DAILY #30 tabs 06/22/21 [Rx Last Taken Unknown] citalopram 20 mg tablet 20 mg PO DAILY 05/30/22 [History Last Taken Unknown] dicyclomine 10 mg capsule 10 mg PO TID PRN 05/30/22 [History Last Taken Unknown] hyoamine PO 05/30/22 [History Last Taken Unknown] umeclidinium 62.5 mcg-vilanterol 25 mcg/actuation powdr for inhalation (Anoro Ellipta) 1 inh inhalation DAILY 05/30/22 [History Last Taken Unknown] zolpidem 10 mg tablet PO 05/30/22 [History Last Taken Unknown] amitriptyline 10 mg tablet 10 mg PO QHS #30 tabs 01/31/23 [Rx Last Taken Unknown] flurbiprofen 100 mg tablet 100 mg PO TID PRN pain #90 tabs 01/31/23 [Rx Last Taken Unknown] hydrocodone-acetaminophen 5-325mg 5mg-325mg 1 tab PO Q4H PRN PRN Pain 2 days #10 TABLETS 04/25/23 [Rx Last Taken Unknown] ondansetron 4 mg disintegrating tablet 4 mg PO Q8H PRN PRN Nausea #10 tabs 04/25/23 [Rx Last Taken Unknown] Allergy/AdvReac Type Severity Reaction Status Date / Time codeine AdvReac Intermediate Nausea Verified 04/25/23 13:13 diphenhydramine AdvReac Intermediate Nausea Verified 04/25/23 13:13 [From Benadryl] Family History Other COPD (chronic obstructive pulmonary disease) CVA (cerebral vascular accident) Colon cancer Heart disease Surgical History H/O bilateral oophorectomy H/O lithotripsy H/O: hysterectomy History of back surgery History of esophagogastroduodenoscopy (EGD) Social History Smoking Status: Former smoker ROS ROS ED Review of Systems ROS Unobtainable: other Constitutional Constitutional ED: Reports lethargy; Denies chills, fever(s), sweats or weight loss Eyes Eyes: Denies blurry vision, change in vision or diplopia ENT ENT ED: Denies rhinorrhea or sore throat Cardiovascular Cardiovascular: Denies chest pain, orthopnea or racing heartbeat Respiratory/Chest Respiratory/Chest: Denies cough, dyspnea, dyspnea on exertion, orthopnea or sputum Gastrointestinal Gastrointestinal: Denies abdominal pain, diarrhea, nausea or vomiting Genitourinary Genitourinary ED: Denies dysuria, hematuria or urinary frequency Musculoskeletal Musculoskeletal: Reports other Details: Left wrist, left elbow, and left shoulder pain ; Denies arthralgias, back pain, myalgias or neck pain Integumentary Denies abscess, Abrasions or rash Neurologic Neurologic: Denies headache(s) or weakness Psychiatric Psychiatric: Denies anxiety, depression or suicidal thoughts Endocrine Endocrinology: Denies polydipsia, polyphagia or polyuria Hematologic/Lymphatic Hematologic/Lymphatic: Denies easy bleeding, easy bruising or lymphadenopathy Allergic/Immunologic Allergic/Immunologic ED: Denies mouth swelling, tongue swelling or urticaria EXAM Physical Exam Const Vital Signs: 04/25/23 13:14 Temperature 97.3 F L Temperature Source Temporal Pulse Rate 78 Respiratory Rate 14 Blood Pressure 136/78 H Blood Pressure Mean 97 Pulse Ox 99 Oxygen Delivery Method Room Air Positive well nourished and well developed General Appearance ED: well developed and NAD HEENT Reports TM's clear and moist mucous membranes normocephalic and atraumatic; Negative for trauma or tenderness Tympanic Membrane ED: Yes TM's clear Eyes PERRL and EOMs intact bilaterally General Eye ED: Negative for pale conjunctiva or scleral icterus Neck no lymphadenopathy, supple and no JVD General: Negative for tenderness Chest Wall inspection of chest normal and palpation of chest normal Chest: Negative for tenderness Resp normal respiratory effort and clear to auscultation bilaterally Effort and Inspection: Negative for respiratory distress or pain with movement Auscultation: Negative for rhonchi, wheezes or diminished lung sounds Cardio regular rate, regular rhythm, S1 normal heart sound, S2 normal heart sound and no murmurs Peripheral Pulses: pulses 2+ throughout GI normal to inspection, nondistended, normoactive bowel sounds, soft to palpation, non-tender, non-distended and no masses Back/Spine no CVA tenderness and no thoracic nor lumbar tenderness Extremity normal to inspection Extremity Narrative: Left arm-patient has ecchymosis and bruising diffusely about the dorsum of the left hand and wrist with tenderness to palpation. No obvious deformity. She is neurovascular intact distally. Patient has diffuse tenderness over the left elbow especially at the radial head with tenderness to palpation and pain with pronation and supination. Patient has tenderness over the left glenohumeral joint. No obvious deformity. She is neurovascular intact distally. General Extremety ED: Negative for edema General Extremity: Negative for edema Neuro oriented x3, CN's II-XII intact bilaterally, no sensory deficits noted and gait normal Sensorium / Orientation: awake, alert, oriented to person, oriented to place and oriented to time Motor Exam: strength 5/5 throughout and strength abnormal Psych mental status grossly normal Skin no rashes or lesions noted and no wounds MDM MDM MDM Narrative Medical decision making narrative: Patient presents with fall and injury to the left upper extremity. X-rays of the left wrist as well as elbow and left shoulder were obtained. Patient has a small avulsion fracture from the ulnar styloid and a radial head fracture. Patient will be placed in a wrist splint and given a sling for her arm. She will be referred to orthopedics on-call for follow-up. Patient advised to ice and elevate the extremity. She will be given a prescription for a few Martinez for pain. Patient also given a prescription for Zofran. Radiography Diagnostic Testing: Three-view x-rays of the left wrist obtained interpreted by myself as no obvious fracture or dislocation. Radiology did note a small avulsion fracture from the styloid of the ulna three-view x-rays of the left Three-view x-ray of left elbow obtained interpreted by myself as fracture of the radial head relatively nondisplaced. Radiology in agreement. 2 view x-rays of the left shoulder obtained interpreted by myself as no evidence of fracture or dislocation. Radiology in agreement. Discharge Plan Triage Chief Complaint: Upper Extremity Injury ED Provider: Mat Mcghee Dx/Rx/DC Orders Clinical Impression: Closed fracture of radial head, Shoulder sprain, Fracture of ulnar styloid Instructions: ED Radial Head Fracture, Wrist Fracture ED, ED Shoulder Sprain Prescriptions: New hydrocodone-acetaminophen [hydrocodone-acetaminophen] 5-325 mg tablet 1 tab PO Q4H PRN PRN (Reason: Pain) 2 Days Qty: 10 0RF ondansetron [ondansetron] 4 mg tablet,disintegrating 4 mg PO Q8H PRN PRN (Reason: Nausea) Qty: 10 0RF No Action dicyclomine 10 mg capsule 10 mg PO TID PRN Anoro Ellipta 62.5-25 mcg/actuation blister with device 1 inh inhalation DAILY zolpidem 10 mg tablet PO hyoamine PO citalopram 20 mg tablet 20 mg PO DAILY flurbiprofen 100 mg tablet 100 mg PO TID PRN (Reason: pain) Qty: 90 4RF amitriptyline 10 mg tablet 10 mg PO QHS Qty: 30 5RF multivitamin 1 EACH tablet 1 each PO DAILY calcium carbonate 600 MG tablet 600 mg PO DAILY pantoprazole 40 MG tablet 40 mg PO DAILY losartan 100 MG tablet 100 mg PO DAILY amlodipine 5 mg tablet 5 mg PO DAILY Qty: 30 0RF Primary Care Provider: Maribell Sanchez Referrals: Maribell Sanchez MD [Primary Care Provider] - Larry Boudreaux DO [Med Staff - Active Staff] - 3-5 Days Disposition Disposition: Home, Self Care Discharge Date/Time: 04/25/23 15:00
== END 2023-04-25 15:00 | disposition home or self-care (01) ==
PROVIDERS: Emergency Provider Emergency Medicine; PCP Internal Medicine; Visit Provider Emergency Medicine
DX: S52.122A Displaced fracture of head of left radius, initial encounter for closed fracture (principal); J44.9 Chronic obstructive pulmonary disease, unspecified; S52.612A Displaced fracture of left ulna styloid process, initial encounter for closed fracture; S43.402A Unspecified sprain of left shoulder joint, initial encounter; W19.XXXA Unspecified fall, initial encounter; Z86.73 Personal history of transient ischemic attack (TIA), and cerebral infarction without residual deficits; Z87.891 Personal history of nicotine dependence
CPT/HCPCS: 73030; 73080; 73110; 99283

== ENCOUNTER → 2023-06-04 | Outpatient (CLI) | payer MEDICARE, OTHER, SELFPAY | END | disposition home or self-care (01) | LOC: MTLAB 14:53 | PROVIDERS: PCP Internal Medicine; Referring Provider Psychiatry & Neurology Neurology; Visit Provider Psychiatry & Neurology Neurology | DX: G62.9 Polyneuropathy, unspecified (principal) | CPT/HCPCS: 86335 ==

== ENCOUNTER 2024-02-27 11:14 | Emergency (ER) | payer MEDICARE, OTHER, SELFPAY ==
[2024-02-27] VITALS (7 sets, daily range): BP systolic 110–183; BP diastolic 60–98; PULSE 78–94; RESP 16–20; TEMP 36.6; O2SAT 94–100; BMI 29.3
--- NOTE | 2024-02-27 11:59 | EDS_ITS ---
HPI History of Present Illness Chief Complaint: Allergic Reaction Informant: patient, spouse/S.O. and EMS Narrative Narrative: 78-year-old female with Crohn's disease was an outpatient infusion center getting an infusion of Renflexis for her Crohn's, when apparently she lost consciousness and according to EMS was having an allergic reaction. She was given Benadryl and epinephrine. She states she feels better now although she is a little sleepy from the Benadryl and has some mild swelling sensation in her throat but not her tongue, she appears a little dyspneic but denies it, saying that my breathing is just a little funny. She denies any chest discomfort or other symptoms right now. Family states she had a mild reaction to this during her last infusion which was 2 or [address] [facility] Medical History Memory change Altered bowel habits Neuropathic pain of both feet Spondylolisthesis, lumbar region Colonoscopy planned Stroke Peripheral nerve disease Hypertension Hiatal hernia Dyslipidemia COPD (chronic obstructive pulmonary disease) Home Medications ?Medication ?Instructions ?Recorded ?Last Taken ?Type calcium carbonate 600 mg PO DAILY 08/20/20 Unknown History losartan 100 mg tablet 100 mg PO DAILY 08/20/20 Unknown History multivitamin 1 each PO DAILY 08/20/20 Unknown History pantoprazole 40 mg tablet,delayed 40 mg PO DAILY 08/20/20 Unknown History release amlodipine 5 mg tablet 5 mg PO DAILY #30 tabs 06/22/21 Unknown Rx citalopram 20 mg tablet 20 mg PO DAILY 05/30/22 Unknown History dicyclomine 10 mg capsule 10 mg PO TID PRN 05/30/22 Unknown History hyoamine PO 05/30/22 Unknown History umeclidinium 62.5 mcg-vilanterol 1 inh inhalation DAILY 05/30/22 Unknown History 25 mcg/actuation powdr for inhalation (Anoro Ellipta) zolpidem 10 mg tablet PO 05/30/22 Unknown History hydrocodone-acetaminophen 5-325mg 1 tab PO Q4H PRN PRN Pain 2 days 04/25/23 Unknown Rx 5mg-325mg #10 TABLETS ondansetron 4 mg disintegrating 4 mg PO Q8H PRN PRN Nausea #10 tabs 04/25/23 Unknown Rx tablet pregabalin 150 mg capsule 150 mg PO BID #60 caps 06/04/23 Unknown Rx pregabalin 75 mg capsule 75 mg PO BID #28 caps 06/04/23 Unknown Rx epinephrine 0.3 mg/0.3 mL 0.3 mg (0.3 mL) IM Q10M PRN PRN 02/27/24 Unknown Rx injection, auto-injector anaphylaxis #2 ea prednisone 10 mg tablet 10 mg PO UD #38 tabs 02/27/24 Unknown Rx Allergy/AdvReac Type Severity Reaction Status Date / Time infliximab-abda (From Allergy Severe Anaphylaxis Verified 02/27/24 14:42 Renflexis) codeine AdvReac Intermediate Nausea Verified 02/27/24 11:15 diphenhydramine (From AdvReac Intermediate Nausea Verified 02/27/24 11:15 Benadryl) Family History Other COPD (chronic obstructive pulmonary disease) CVA (cerebral vascular accident) Colon cancer Heart disease Surgical History H/O: hysterectomy H/O bilateral oophorectomy H/O lithotripsy History of esophagogastroduodenoscopy (EGD) History of back surgery Social History Smoking Status: Former smoker ROS ROS ED Constitutional Constitutional ED: Reports fatigue; Denies chills or fever(s) Eyes Eyes: Denies change in vision or diplopia ENT ENT ED: Reports throat swelling; Denies rhinorrhea or sore throat Cardiovascular Cardiovascular: Denies chest pain, leg edema or palpitations Respiratory/Chest Respiratory/Chest: Reports as per HPI; Denies cough or dyspnea Gastrointestinal Gastrointestinal: Denies abdominal pain, diarrhea, nausea or vomiting Genitourinary Genitourinary ED: Denies dysuria or hematuria Musculoskeletal Musculoskeletal: Denies back pain or neck pain Integumentary Denies abscess or rash Neurologic Neurologic: Denies headache(s), paresthesias or weakness Psychiatric Psychiatric: Denies suicidal thoughts EXAM Physical Exam Const Vital Signs: 02/27/24 11:15 02/27/24 11:24 02/27/24 12:12 Temperature 97.8 F Temperature Source Temporal Pulse Rate 90 Respiratory Rate 20 H Respiratory Effort Labored Respiratory Depth Shallow Respiratory Pattern Tachypnea Blood Pressure 183/98 H Blood Pressure Mean 126 Pulse Ox 97 95 Oxygen Delivery Method Room Air Room Air Room Air 02/27/24 12:12 02/27/24 12:15 02/27/24 13:00 Temperature Temperature Source Pulse Rate 88 91 94 Respiratory Rate 18 18 16 Respiratory Effort Respiratory Depth Respiratory Pattern Blood Pressure 151/91 H 110/60 Blood Pressure Mean 111 76 Pulse Ox 94 98 Oxygen Delivery Method Room Air Room Air 02/27/24 14:00 Temperature Temperature Source Pulse Rate 90 Respiratory Rate 16 Respiratory Effort Respiratory Depth Respiratory Pattern Blood Pressure 113/66 Blood Pressure Mean 81 Pulse Ox 94 Oxygen Delivery Method Room Air Positive well nourished and well developed General Appearance ED: well developed and NAD HEENT Reports moist mucous membranes HEENT Narrative: No tongue or lip edema. No stridor. No dysphonia. No trismus mouth is normal- appearing. normocephalic and atraumatic Eyes PERRL and EOMs intact bilaterally Neck full ROM and supple Resp clear to auscultation bilaterally Resp Narrative: Mildly tachypneic but in no respiratory distress, no wheezing and equal breath sounds present bilaterally Effort and Inspection: Negative for retractions Cardio regular rate, regular rhythm and no murmurs GI non-tender and non-distended Auscultation: normoactive bowel sounds Palpation: soft Back/Spine no CVA tenderness General Back: other FROM Extremity normal to inspection General Extremety ED: Negative for edema, pulses abnormal or tenderness General Extremity: Negative for edema or pulses abnormal Neuro oriented x3, CN's II-XII intact bilaterally and no sensory deficits noted Sensorium / Orientation: awake and alert Motor Exam: strength 5/5 throughout Psych mental status grossly normal Skin no rashes or lesions noted and no wounds MDM MDM MDM Narrative Medical decision making narrative: Patient apparently already received Solu-Medrol prior to arrival so although I ordered it was canceled. I ordered an albuterol aerosol, she is breathing better on reevaluation and denies any dyspnea. With observation for couple hours here her blood pressure came down to 113/66, she states the throat tightness is almost completely resolved she is able to swallow liquids and chew on a piece of candy without any difficulty. She wants to go home. We had a long discussion with she and significant other she understands this was potentially life-threatening reaction, certainly seems to be defervescing. I am okay with her going home, but prescribing her an EpiPen so that she has something to use if her symptoms recur. Will also put her on a 1-2 week taper of prednisone since the half life is 8-10 days. Rhythm Strip Rhythm Strip: Sinus Rhythm Rate: 85 Ectopy: None EKG Initial EKG: Attestation: I personally reviewed and interpreted this EKG as follows: Interpretation: Sinus Rhythm and No Acute Injury Pattern Comments: nml ekg Discharge Plan Triage Chief Complaint: Allergic Reaction ED Provider: Elgin Cardona Dx/Rx/DC Orders Clinical Impression: Anaphylactic reaction Instructions: ED Anaphylaxis, ED Drug Reaction, Other Prescriptions: New epinephrine 0.3 mg/0.3 mL auto-injector 0.3 mg IM Q10M PRN PRN (Reason: anaphylaxis) Qty: 2 0RF Rx Instructions: for 2 doses prednisone 10 mg tablet 10 mg PO UD Qty: 38 0RF Rx Instructions: Take 4 tablets daily for 5 days, then 3 daily for 3 days, then 2 daily for 3 days, then 1 a day for 3 days No Action dicyclomine 10 mg capsule 10 mg PO TID PRN Anoro Ellipta 62.5-25 mcg/actuation blister with device 1 inh inhalation DAILY zolpidem 10 mg tablet PO hyoamine PO citalopram 20 mg tablet 20 mg PO DAILY pregabalin 75 mg capsule 75 mg PO BID Qty: 28 0RF pregabalin 150 mg capsule 150 mg PO BID Qty: 60 4RF Rx Instructions: Begin after completing 2 week course of pregabalin 75mg twice daily. multivitamin 1 EACH tablet 1 each PO DAILY calcium carbonate 600 MG tablet 600 mg PO DAILY pantoprazole 40 MG tablet 40 mg PO DAILY losartan 100 MG tablet 100 mg PO DAILY amlodipine 5 mg tablet 5 mg PO DAILY Qty: 30 0RF hydrocodone-acetaminophen [hydrocodone-acetaminophen] 5-325 mg tablet 1 tab PO Q4H PRN PRN (Reason: Pain) 2 Days Qty: 10 0RF ondansetron [ondansetron] 4 mg tablet,disintegrating 4 mg PO Q8H PRN PRN (Reason: Nausea) Qty: 10 0RF Primary Care Provider: Maribell Sanchez Referrals: Maribell Sanchez MD [Primary Care Provider] - Activity Restrictions/Additional Instructions: Talk to your doctor about a different medication for your Crohn's other than Renflexis. Start the prednisone prescription tomorrow, 02/27. You already received the first dose of steroids for 02/26 while in the hospital. Print Language: Greenlandic Disposition Disposition: Home, Self Care
[2024-02-27] MEDS: Albuterol 2.5 MG/3 ML VIAL.NEB. INHALATION (12:08)
--- NOTE | 2024-02-27 12:25 | EKG12_ITS ---
Test Reason : Blood Pressure : / mmHG Vent. Rate : 087 BPM Atrial Rate : 087 BPM P-R Int : 142 ms QRS Dur : 074 ms QT Int : 374 ms P-R-T Axes : 064 015 058 degrees QTc Int : 450 ms Normal sinus rhythm Normal ECG Confirmed by Larry Garzon ([id number]), medical editor ABDOULAYE PAGE ([id number]) on 02/28/2024 1:36:02 PM Referred By: Elgin Cardona Confirmed By:Larry Garzon
== END 2024-02-27 15:05 | disposition home or self-care (01) ==
PROVIDERS: Emergency Provider Emergency Medicine; PCP Internal Medicine; Referring Provider Emergency Medicine; Visit Provider Emergency Medicine
DX: T78.2XXA Anaphylactic shock, unspecified, initial encounter (principal); K50.90 Crohn's disease, unspecified, without complications; J44.9 Chronic obstructive pulmonary disease, unspecified; Z87.891 Personal history of nicotine dependence; X58.XXXA Exposure to other specified factors, initial encounter; Z86.73 Personal history of transient ischemic attack (TIA), and cerebral infarction without residual deficits
CPT/HCPCS: 93005; 94640; 99284

== ENCOUNTER → 2024-03-24 | Outpatient (CLI) | payer MEDICARE, OTHER, SELFPAY ==
[2024-03-24 14:21] LABS: Amphetamine Urine VISTA NEGATIVE (<1000 ng/mL); Barbiturate Urine VISTA NEGATIVE (< 200 ng/mL); Benzodiazepine Urine VISTA NEGATIVE (< 200 ng/mL); Cocaine Urine VISTA NEGATIVE (< 300 ng/mL); Ecstacy Urine VISTA NEGATIVE (< 500 ng/mL); Methadone Urine VISTA NEGATIVE (< 300 ng/mL); PCP Urine VISTA NEGATIVE (< 25 ng/mL); THC Urine VISTA NEGATIVE (< 50 ng/mL); Vista UDS pH Range 5
== END | disposition home or self-care (01) ==
PROVIDERS: Referring Provider Anesthesiology Pain Medicine; Visit Provider Anesthesiology Pain Medicine
DX: F11.20 Opioid dependence, uncomplicated (principal)
CPT/HCPCS: 80307

== ENCOUNTER → 2024-06-22 | Outpatient (CLI) | payer MEDICARE, OTHER, SELFPAY ==
--- NOTE | 2024-06-22 08:30 | MRI_ITS ---
PROCEDURE: SPINE LUMBAR (ROUTINE) REASON FOR EXAM: Low back pain radiating to bilateral legs. TECHNIQUE: Noncontrast lumbar spine MRI. COMPARISON: Lumbar spine radiograph from 01/31/2023. FINDINGS: Lumbar vertebral bodies maintain a normal height. There is levoscoliosis of the lumbar spine. There is posterior fusion from L2 to the sacrum with associated susceptibility artifact. There are intervertebral disc spaces from L2-L4. There is grade 1 anterolisthesis of L5-S1 on a chronic basis. There is diminished signal intensity involving the visualized lumbar vertebral bodies related to degenerative disc disease. Multilevel disc space narrowing and endplate spurring is present greatest at T12-L1 and L4-L5. No acute fracture or subluxation is identified. The tip of the conus medullaris terminates at T12-L1 and signal intensity of the included spinal cord is within normal limits. There is mild atrophy of the paraspinous musculature. Individual levels: T12-L1: Disc bulge and facet arthropathy with no significant central canal stenosis. Severe left and moderate right neural foraminal narrowing is present. L1-2: Postsurgical changes with susceptibility artifact. Disc bulge and facet arthropathy with drxi-fi-[id number] central canal stenosis. Moderate to severe bilateral neural foraminal narrowing is present. L2-L3: Postsurgical changes with susceptibility artifact. Disc bulge and mild facet arthropathy with no significant central canal stenosis. Moderate left and mild right neural foraminal narrowing is present. L3-4: Postsurgical changes with susceptibility artifact. No disc herniation or central canal stenosis is present. There is suggestion of severe right and mild left neural foraminal narrowing however limitations due to susceptibility artifact. L4-5: Postsurgical changes with susceptibility artifact. Disc bulge and facet arthropathy with no significant central canal stenosis. Moderate to severe right and wewv-km-[id number] left neural foraminal narrowing is present. L5-S1: Postsurgical changes with susceptibility artifact. Grade 1 anterolisthesis with disc bulge without central canal stenosis. Severe bilateral neural foraminal narrowing is present. MRI/Spine Lumbar (Routine) IMPRESSION: 1. Postsurgical changes from posterior fusion from L2 to the sacrum with associ ated susceptibility artifact. No significant central canal stenosis is identified at these levels. Multilevel varying degre es of neural foraminal narrowing are present however suboptimal evaluation due to susceptibility artifact. 2. Ruxk-cr-mucuujwq central canal stenosis at L1-L2. Bilateral neural foramina l narrowing is present from T12-L2. Reading [facility]
== END | disposition home or self-care (01) ==
LOC: MRI 08:12
PROVIDERS: Referring Provider Anesthesiology Pain Medicine; Visit Provider Anesthesiology Pain Medicine
DX: M54.16 Radiculopathy, lumbar region (principal)
CPT/HCPCS: 72148

== ENCOUNTER → 2024-07-30 | Outpatient (CLI) | payer MEDICARE, OTHER, SELFPAY ==
[2024-07-30 11:01] LABS: Absolute Lymphocyte Count 2.42 X10^3/uL (0.83-4.51); Absolute Neutrophil Count 4.2 X10^3/uL (2.0-7.7); Basophil# 0.05 X10^3/uL; Basophil% 0.7 % (0-1); Eosinophil# 0.24 X10^3/uL; Eosinophils% 3.2 % (0-5); Hematocrit 36.4 % (37-47); Hemoglobin 12.5 g/dL (12.0-15.0); Lymphocyte # 2.42 X10^3/ul (0.83-4.51); Lymphocyte % 31.8 % (19-41); Mean Corp Hgb Conc 34.3 g/dL (32-36); Mean Corpuscular Volume 98.9 fL (81-99); Mean Platelet Vol. 9.2 fl (6.2-12.0); Monocyte# 0.68 X10^3/uL; Monocyte% 8.9 % (0-10); NRBC Flagged by Analyzer 0 % (0-5); Neutrophil # 4.19 X10^3/uL (2.7-7.7); Neutrophil % 55.1 % (47-70); Platelet Count 193 K/mm3 (150-450); RBC Distribution Width CV 13.2 % (11.6-14.6); RBC Distribution Width SD 48.3 fl (35.1-43.9); Red Blood Count 3.68 M/mm3 (4.2-5.4); White Blood Count 7.6 K/mm3 (4.4-11.0)
[2024-07-30 11:33] LABS: ALB/GLOB Ratio 1.3 RATIO (0.9-2.4); AST(SGOT) 20 U/L (<=31); Alanine Aminotransfer ALT/SGPT 15 U/L (<=34); Albumin, Serum 4.1 g/dL (3.4-4.8); Alkaline Phosphatase 78 U/L (35-104); Anion Gap 11 (5-15); BUN 17 mg/dL (4-19); Calcium,Total 9.9 mg/dL (7.6-11.0); Carbon Dioxide 24.1 mmol/L (21.0-32.0); Chloride 107 mmol/L (98-108); Creatinine, Serum 0.89 mg/dL (0.70-1.20); EST Glomerular Filtration Rate 66 (>60); Globulin 3.2 g/dL (2.2-4.2); Glucose 96 mg/dL (70-99); Protein, Total 7.4 g/dL (5.9-8.4); Sodium Level 142 mmol/L (133-145); Total Bilirubin 0.33 mg/dL (0.00-1.30)
[2024-07-31 15:08] LABS: Endomysial Antibody IgA Negative (Negative); Immunoglobulin A 420 mg/dL (64-422); t-Transglutaminase IgA <2 U/mL (0-3)
== END | disposition home or self-care (01) ==
LOC: LAB 10:26
PROVIDERS: PCP Internal Medicine
DX: K50.10 Crohn's disease of large intestine without complications (principal)
CPT/HCPCS: 36415; 80053; 82784; 83516; 85025; 86003; 86005; 86140; 86255

== ENCOUNTER → 2024-07-31 | Outpatient (CLI) | payer MEDICARE, OTHER, SELFPAY ==
[2024-08-03 01:06] LABS: Pancreatic Elastase, Fecal > 800 (>200)
== END | disposition home or self-care (01) ==
LOC: LABSPEC 10:14
PROVIDERS: PCP Internal Medicine
DX: K50.90 Crohn's disease, unspecified, without complications (principal)
CPT/HCPCS: 82274; 82653; 87493

== ENCOUNTER 2024-08-04 08:15 | Emergency (ER) | payer MEDICARE, OTHER, SELFPAY ==
[2024-08-04 08:16] VITALS: BP 163/97; PULSE 78; RESP 16; TEMP 36.7; O2SAT 97; BMI 27.8
--- NOTE | 2024-08-04 08:31 | EDS_ITS ---
HPI HPI - GI History of Present Illness Chief Complaint: Abd Pain Informant: patient and spouse/S.O. Narrative Narrative: 79-year-old female presenting to the emergency room with right-sided chest and abdominal pain. Patient states over the past 2 to 3 days she has had a sharp pain right upper quadrant right chest going into the right shoulder region. It is worse with movement. She denies any known trauma but wonders if she would mast ve injured a rib when she was lifting wheelchair into her vehicle. Patient was scheduled for capsule endoscopy today with Dr. Friend has been doing a bowel prep. She notes that she is moving her bowels appropriately. She does note some associated nausea. She is unsure if she has had prior cholecystectomy. She denies any known renal or liver disease. She does note a history of Crohn's disease as well as undifferentiated polyneuropathy. She denies any rash. No reported fevers. She notes some shortness of breath coming down the hallway. No particular cough. Because of her symptomology she was sent to the emergency by [facility] Medical History Memory change Altered bowel habits Neuropathic pain of both feet Spondylolisthesis, lumbar region Colonoscopy planned Stroke Peripheral nerve disease Hypertension Hiatal hernia Dyslipidemia COPD (chronic obstructive pulmonary disease) Home Medications ?Medication ?Instructions ?Recorded ?Last Taken ?Type calcium carbonate 600 mg PO DAILY 08/20/20 Unk nown History losartan 100 mg tablet 100 mg PO DAILY 08/20/20 Unk nown History multivitamin 1 each PO DAILY 08/20/20 Unk nown History pantoprazole 40 mg tablet,delayed 40 mg PO DAILY 08/20 Unknown History release dicyclomine 10 mg capsule 10 mg PO TID PRN 05/30/22 Un known History hyoamine PO 05/30/22 Unknown History umeclidinium 62.5 mcg-vilanterol 1 inh inhalation JEN Y 05/30/22 Unknown History 25 mcg/actuation powdr for inhalation (Anoro Ellipta) zolpidem 10 mg tablet PO 05/30/22 Unknown History hydrocodone-acetaminophen 5-325mg 1 tab PO Q4H PRN PRN Pain 2 days 04/25/23 Unknown Rx 5mg-325mg #10 TABLETS ondansetron 4 mg disintegrating 4 mg PO Q8H PRN PRN Na usea #10 tabs 04/25/23 Unknown Rx tablet epinephrine 0.3 mg/0.3 mL 0.3 mg (0.3 mL) IM Q10M PRN PRN 02/27/24 Unknown Rx injection, auto-injector anaphylaxis #2 ea colestipol 1 gram tablet 1 g PO ONCE 07/30/24 Unknown History escitalopram oxalate 20 mg tablet 20 mg PO QDAY Unknown History gabapentin 600 mg tablet 600 mg PO TID 07/30/24 Unkno wn History meloxicam 7.5 mg tablet 7.5 mg PO QDAY 07/30/24 Unkn own History Allergy/AdvReac Type Severity Reaction Status Date / Time infliximab-abda (From Allergy Severe Anaphylaxis Verified 07/30/24 09:44 Renflexis) codeine AdvReac Intermediate Nausea Verified 07/30/24 09:44 diphenhydramine (From AdvReac Intermediate Nausea Verified 07/30/24 09:44 Benadryl) Family History Other COPD (chronic obstructive pulmonary disease) CVA (cerebral vascular accident) Colon cancer Heart disease Surgical History H/O: hysterectomy H/O bilateral oophorectomy H/O lithotripsy History of esophagogastroduodenoscopy (EGD) History of back surgery Social History Smoking Status: Never smoker alcohol intake: never ROS ROS ED Constitutional Constitutional ED: Denies chills, fever(s) or weight loss Eyes Eyes: Denies change in vision or diplopia ENT ENT ED: Denies ear pain, rhinorrhea or sore throat Cardiovascular Cardiovascular: Reports chest pain; Denies orthopnea, palpitations or racing heartbeat Respiratory/Chest Respiratory/Chest: Reports dyspnea and dyspnea on exertion; Denies cough or orthopnea Gastrointestinal Gastrointestinal: Reports abdominal pain; Denies diarrhea, nausea or vomiting Genitourinary Genitourinary ED: Denies dysuria, hematuria or urinary frequency Musculoskeletal Musculoskeletal: Reports back pain; Denies arthralgias or myalgias Integumentary Denies abscess or rash Neurologic Neurologic: Denies headache(s) or weakness Psychiatric Psychiatric: Denies anxiety, depression, suicidal ideation or suicidal thoughts Endocrine Endocrinology: Denies polydipsia, polyphagia or polyuria Allergic/Immunologic Allergic/Immunologic ED: Denies mouth swelling, tongue swelling or urticaria EXAM Physical Exam Const Vital Signs: 08/04/24 08:16 08/04/24 10:08 08/04/24 12:00 Temperature 98.1 F Temperature Source Temporal Pulse Rate 78 67 69 Respiratory Rate 16 15 15 Blood Pressure 163/97 H 151/82 H 154/78 H Blood Pressure Mean 119 105 103 Pulse Ox 97 95 95 Oxygen Delivery Method Room Air Room Air Room Air 08/04/24 12:36 Temperature 97.6 F L Temperature Source Pulse Rate 71 Respiratory Rate 18 Blood Pressure 144/104 H Blood Pressure Mean 117 Pulse Ox 95 Oxygen Delivery Method Positive well nourished and well developed General Appearance ED: well developed and NAD HEENT Reports normocephalic, head/scalp atraumatic and moist mucous membranes Eyes PERRL and EOMs intact bilaterally Neck no lymphadenopathy, supple and no JVD Chest Wall Chest Narrative: Right upper and mid posterior lateral and anterior ribs are mildly tender to palpation. I do not appreciate a rash no crepitance or subcutaneous air. Resp normal respiratory effort and clear to auscultation bilaterally Cardio regular rate, regular rhythm and no murmurs GI non-distended and no masses Inspection: Negative for abdominal distention Auscultation: hyperactive bowel sounds Palpation: soft and tender RUQ Back/Spine no CVA tenderness Back/Spine Narrative: Painful range of motion when attempting to sit up on the side of the bed. Patient notes upper right thoracic region as the area that hurts. Extremity normal to inspection General Extremety ED: Negative for edema General Extremity: Negative for edema Neuro oriented x3 and CN's II-XII intact bilaterally Sensorium / Orientation: alert Motor Exam: strength 5/5 throughout Psych mental status grossly normal Mood & Affect: Negative for depressed or tearful Skin no rashes or lesions noted and no wounds MDM MDM MDM Narrative Medical decision making narrative: Differential diagnosis includes but not limited to choledocholithiasis cholecystitis shingles pneumonia pleural effusion pulmonary edema rib fracture chest wall strain abdominal muscle strain colitis Patient's blood work is rather unremarkable. Troponin is 9 white count is [address] of the abdomen pelvis as well as CTA of the chest was obtained which does not demonstrate any findings to explain the patient's symptomology. Please see radiologist read. Patient received a dose of Toradol. As well as Zofran. I spoke with the patient with the above results. I believe she can be discharged home. Would recommend supportive care and pain medication. If she is not improving or worsening she can return to emergency or see primary care. Patient is comfortable with this plan History & Record Review Discussion w/independent historian: Patient Lab Data Attestation: I reviewed the patient's lab results. Labs: Laboratory Results - last 24 hr 08/04/24 08:45 WBC 7.0 RBC 3.89 L Hgb 13.1 Hct 38.4 MCV 98.7 MCH 33.7 H MCHC 34.1 RDW Std Deviation 47.2 H RDW Coeff of Bradley 13.2 Plt Count 209 MPV 8.8 Immature Gran % (Auto) 0.900 Neut % (Auto) 55.1 Lymph % (Auto) 32.3 [place] % (Auto) 7.6 Eos % (Auto) 3.4 Baso % (Auto) 0.7 Absolute Neuts (auto) 3.9 Absolute Lymphs (auto) 2.26 Nucleated RBC % 0 Sodium 138 Potassium 3.9 Chloride 102 Carbon Dioxide 22.5 Anion Gap 13 BUN 14 Creatinine 0.96 Estim Creat Clear Calc 43.24 L Est GFR (MDRD) Non-Af 60 BUN/Creatinine Ratio 14.4 Glucose 111 H Calcium 9.7 Total Bilirubin 0.53 Direct Bilirubin 0.18 AST 23 ALT 17 Alkaline Phosphatase 78 Troponin T High Sens 9 Total Protein 7.6 Albumin 4.3 Globulin 3.3 Lipase 38 Radiography Diagnostic Testing: Clinical Impression(s) from Imaging Studies Chest CTA 08/04/24 11:00 IMPRESSION: No pulmonary embolism. Reading Location: [facility] Abdomen/Pelvis CT 08/04/24 11:11 IMPRESSION: 1. Hepatomegaly with fatty infiltration. 2. No obstructive uropathy. 3. Bilateral inguinal hernias. Reading Location: [facility] EKG Initial EKG: Attestation: I personally reviewed and interpreted this EKG as follows: Comments: Sinus rhythm with a ventricular to 69 bpm. No concerning features of ACS are noted. Prior EKG tracings: available for review Prior: Unchanged (02/27/24) Discharge Plan Triage Chief Complaint: Abd Pain ED Provider: Marky Navas Dx/Rx/DC Orders Clinical Impression: Chest pain, Abdominal pain Instructions: ED Chest Wall Strain Prescriptions: No Action dicyclomine 10 mg capsule 10 mg PO TID PRN Anoro Ellipta 62.5-25 mcg/actuation blister with device 1 inh inhalation DAILY zolpidem 10 mg tablet PO hyoamine PO meloxicam 7.5 mg tablet 7.5 mg PO QDAY colestipol 1 gram tablet 1 g PO ONCE escitalopram oxalate 20 mg tablet 20 mg PO QDAY gabapentin 600 mg tablet 600 mg PO TID multivitamin 1 EACH tablet 1 each PO DAILY calcium carbonate 600 MG tablet 600 mg PO DAILY pantoprazole 40 MG tablet 40 mg PO DAILY losartan 100 MG tablet 100 mg PO DAILY hydrocodone-acetaminophen [hydrocodone-acetaminophen] 5-325 mg tablet 1 tab PO Q4H PRN PRN (Reason: Pain) 2 Days Qty: 10 0RF ondansetron [ondansetron] 4 mg tablet,disintegrating 4 mg PO Q8H PRN PRN (Reason: Nausea) Qty: 10 0RF epinephrine 0.3 mg/0.3 mL auto-injector 0.3 mg IM Q10M PRN PRN (Reason: anaphylaxis) Qty: 2 0RF Rx Instructions: for 2 doses Primary Care Provider: Maribell Sanchez Referrals: Maribell Sanchez MD [Primary Care Provider] - 1 Week if not improving Print Language: Tunisian Disposition Disposition: Home, Self Care Discharge Date/Time: 08/04/24 12:38
--- NOTE | 2024-08-04 08:35 | EKG12_ITS ---
Test Reason : ABD PAIN Blood Pressure : */* mmHG Vent. Rate : 69 BPM Atrial Rate : 69 BPM P-R Int : 110 ms QRS Dur : 76 ms QT Int : 398 ms P-R-T Axes : 24 10 38 degrees QTcB Int : 426 ms Sinus rhythm with short DC Possible Inferior infarct , age undetermined Abnormal ECG Confirmed by BETO MINER, FLY ([id number]), editorial writer ABDOULAYE PAGE ([id number]) on 08/05/2024 8:17:54 AM Referred By: Confirmed By: FLY PÉREZ MD
[2024-08-04] MEDS: Ondansetron 4 MG/2 ML Vial IV (08:51)
[2024-08-04] MEDS: Ketorolac 15 MG/ML Vial IV (08:51)
[2024-08-04 08:55] LABS: Absolute Lymphocyte Count 2.26 X10^3/uL (0.83-4.51); Absolute Neutrophil Count 3.9 X10^3/uL (2.0-7.7); Basophil# 0.05 X10^3/uL; Basophil% 0.7 % (0-1); Eosinophil# 0.24 X10^3/uL; Eosinophils% 3.4 % (0-5); Hematocrit 38.4 % (37-47); Hemoglobin 13.1 g/dL (12.0-15.0); Lymphocyte # 2.26 X10^3/ul (0.83-4.51); Lymphocyte % 32.3 % (19-41); Mean Corp Hgb Conc 34.1 g/dL (32-36); Mean Corpuscular Hgb 33.7 pg (27.0-32.0); Mean Corpuscular Volume 98.7 fL (81-99); Mean Platelet Vol. 8.8 fl (6.2-12.0); Monocyte# 0.53 X10^3/uL; Monocyte% 7.6 % (0-10); NRBC Flagged by Analyzer 0 % (0-5); Neutrophil # 3.86 X10^3/uL (2.7-7.7); Neutrophil % 55.1 % (47-70); Platelet Count 209 K/mm3 (150-450); RBC Distribution Width CV 13.2 % (11.6-14.6); RBC Distribution Width SD 47.2 fl (35.1-43.9); Red Blood Count 3.89 M/mm3 (4.2-5.4)
[2024-08-04 09:34] LABS: Troponin T High Sensitivity 9 ng/L (<=14)
[2024-08-04 10:08] VITALS: BP 151/82; PULSE 67; RESP 15; O2SAT 95
[2024-08-04 10:31] LABS: Lipase 38 U/L (13-75)
[2024-08-04 10:52] LABS: AST(SGOT) 23 U/L (<=31); Alanine Aminotransfer ALT/SGPT 17 U/L (<=34); Albumin, Serum 4.3 g/dL (3.4-4.8); Alkaline Phosphatase 78 U/L (35-104); Anion Gap 13 (5-15); BUN 14 mg/dL (4-19); BUN/Creat Ratio 14.4 RATIO (10-20); Bilirubin, Direct 0.18 mg/dL (0.00-0.30); Calcium,Total 9.7 mg/dL (7.6-11.0); Carbon Dioxide 22.5 mmol/L (21.0-32.0); Chloride 102 mmol/L (98-108); Creatinine, Serum 0.96 mg/dL (0.70-1.20); EST Glomerular Filtration Rate 60 (>60); Estimated Creatinine Clearance 43.24 ml/min (50-250); Globulin 3.3 g/dL (2.2-4.2); Glucose 111 mg/dL (70-99); Potassium 3.9 mmol/L (3.3-5.1); Protein, Total 7.6 g/dL (5.9-8.4); Sodium Level 138 mmol/L (133-145); Total Bilirubin 0.53 mg/dL (0.00-1.30)
--- NOTE | 2024-08-04 11:00 | CT_ITS ---
EXAM: CT Angiography Chest Without and With Intravenous Contrast CLINICAL INDICATION: PAIN PULMONARY EMBOLISM TECHNIQUE: Axial computed tomographic angiography images of the chest without and with intravenous contrast. This CT exam was performed using one or more of the following dose reduction techniques: automated exposure control, adjustment of the mA and/or kV according to patient size, and/or use of iterative reconstruction technique. MIP reconstructed images were created and reviewed. COMPARISON: No relevant prior studies available. FINDINGS: PULMONARY ARTERIES: Unremarkable. No pulmonary embolism. AORTA: Scattered calcified atherosclerotic disease of aorta. No thoracic aortic aneurysm. The ascending thoracic aorta measures 4.1 cm in maximum diameter. LUNGS AND PLEURAL SPACES: Lung emphysema/COPD. No mass. No consolidation. No significant effusion. No pneumothorax. HEART: Unremarkable. No cardiomegaly. No significant pericardial effusion. No evidence of RV dysfunction. BONES/JOINTS: No acute fracture. No dislocation. SOFT TISSUES: Unremarkable. LYMPH NODES: Unremarkable. No enlarged lymph nodes. CT/CTA Chest W/WO Contrast IMPRESSION: No pulmonary embolism. Reading Location[facility]
--- NOTE | 2024-08-04 11:11 | CT_ITS ---
EXAM: CT Abdomen, Pelvis and Lumbar Spine With Intravenous Contrast CLINICAL INDICATION: RUQ PAIN TECHNIQUE: Axial computed tomography images of the abdomen, pelvis and lumbar spine with intravenous contrast. This CT exam was performed using one or more of the following dose reduction techniques: automated exposure control, adjustment of the mA and/or kV according to patient size, and/or use of iterative reconstruction technique. COMPARISON: No relevant prior studies available. FINDINGS: LUNG BASES: Lung emphysema. No consolidation. ABDOMEN: LIVER: Hepatomegaly with fatty infiltration. GALLBLADDER AND BILE DUCTS: Unremarkable. No calcified stones. No ductal dilation. PANCREAS: Unremarkable. No mass. No ductal dilation. SPLEEN: Unremarkable. No splenomegaly. ADRENALS: Unremarkable. No mass. KIDNEYS AND URETERS: Unremarkable. No stones within either kidney. No hydronephrosis. STOMACH AND BOWEL: Unremarkable. No obstruction. No mucosal thickening. PELVIS: APPENDIX: No findings to suggest acute appendicitis. BLADDER: Unremarkable. No mass. REPRODUCTIVE: Unremarkable as visualized. LUMBAR SPINE: VERTEBRAE: Unremarkable. No acute fracture. DISCS/SPINAL CANAL/NEURAL FORAMINA: Hypodense lesion in the right hemipelvis with layering calculi. This appears to be connected to the bowel. This is likely part of the bowel. If indicated, further evaluation with oral contrast may be beneficial. Extensive posterior fusion of L2 to S1 with disc spacers of L2-3 and L3-4. These results in beam hardening artifacts, which limit the evaluation of the adjacent structures. ABDOMEN and PELVIS: INTRAPERITONEAL SPACE: Unremarkable. No free air. No significant fluid collection. BONES/JOINTS: No acute fracture. No dislocation. SOFT TISSUES: Bilateral inguinal hernias. VASCULATURE: Scattered calcified atherosclerotic disease of aorta. No abdominal aortic aneurysm. LYMPH NODES: Unremarkable. No enlarged lymph nodes. CT/Abdomen/Pelvis W IV Cont ONLY IMPRESSION: 1. Hepatomegaly with fatty infiltration. 2. No obstructive uropathy. 3. Bilateral inguinal hernias. Reading Location[facility]
[2024-08-04] MEDS: Ketorolac 30 MG/ML Syringe IV (11:25)
[2024-08-04 12:00] VITALS: BP 154/78; PULSE 69; RESP 15; O2SAT 95
[2024-08-04 12:36] VITALS: BP 144/104; PULSE 71; RESP 18; TEMP 36.4; O2SAT 95
--- NOTE | 2024-08-04 12:37 | ED.RN ---
SPOKE WITH DR MEI OFFICE AND THEY WILL DO PATIENTS PROCEDURE. JC HUMPHREYS WILL WHEEL PT DOWN TO THE OFFICE.
== END 2024-08-04 12:38 | disposition home or self-care (01) ==
PROVIDERS: Emergency Provider Emergency Medicine; PCP Internal Medicine; Visit Provider Emergency Medicine
DX: R07.9 Chest pain, unspecified (principal); J44.9 Chronic obstructive pulmonary disease, unspecified; R10.9 Unspecified abdominal pain; Z86.73 Personal history of transient ischemic attack (TIA), and cerebral infarction without residual deficits
CPT/HCPCS: 71275; 74177; 80048; 80076; 83690; 84484; 85025; 93005; 96374; 96375; 96376; 99283; Q9967; A4216; J2405

== ENCOUNTER 2024-09-17 11:07 | Day surgery (SDC) | payer MEDICARE, OTHER, SELFPAY ==
--- NOTE | 2024-09-15 14:04 | PAT.ANE_ITS ---
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 When Was Last Pacemaker Check QUESTION #4 FULL TEXT: You/Your Family Experience fever (hyperthermia) with Anesthesia Last Oral Intake Last Oral intake: Last Oral Intake NPO since Meds taken in AM with sips of water? 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 Female Yes 09/15/24 12:15 HX of Motion Sickness No 09/15/24 12:15 HX of N/V After Surgery No 09/15/24 12:15 Non-Smoker Yes 09/15/24 12:15 Duration of Surgery greater No 09/15/24 12:15 than 60 minutes Number of Risk Factors 2 09/15/24 12:15 PONV Score Moderate Risk 09/15/24 12:15 Height & Weight Height & Weight: Anesthesia: Height & Weight Height 5 ft 2 in 08/04/24 08:16 Respiratory Assessment Respiratory Assessment - parking technician: Respiratory Tract Infection Hx - parking technician Hx Respiratory Tract Infection No 09/15/24 12:15 STOP Sleep Apnea STOP Sleep Apnea - parking technician: STOP Sleep Apnea - parking technician Hx Hypertension Yes 09/15/24 12:15 Hx Sleep Apnea No 09/15/24 12:15 CPAP BIPAP Do you snore loudly (louder No 09/15/24 12:15 than talking or can be heard Do you often feel tired/ No 09/15/24 12:15 fatigued/ sleepy during daytime? Has anyone observed you stop No 09/15/24 12:15 breathing during sleep? STOP Results Negative 09/15/24 12:15 QUESTION #5 FULL TEXT : Do you snore loudly (louder than talking or can be heard through closed doors)? Tobacco Use History Tobacco Use History - parking technician: Tobacco Use History - parking technician Tobacco Use Smoking Status Former smoker 09/15/24 12:15 Hx Tobacco Use No 09/15/24 12:15 Years Smoking Packs Smoked per Day Smoking Cessation Date was No - quit smoking greater 09/15/24 12:15 within the last 15 years than 15 years ago Hx Smoking Cessation Date 05/14/99 09/15/24 12:15 Hx Smoking Cessation Counseling Hematologic Medial History Hematologic Hx - parking technician: Hematologic Medical Hx - take away man Hx of Blood Transfusion No 09/15/24 12:15 Hx of Transfusion in last 3 No 09/15/24 12:15 Months Date of Last Transfusion (if within last 3 months) Ever experience any problems No 09/15/24 12:15 with transfusion(s)? Specify any problems Hx of Preganancy in last 3 No 09/15/24 12:15 Months Nurse Filling Out Transfusion [facility] 09/15/24 12:15 & Questions: Date: 09/15/24 09/15/24 12:15 Time: 12:17 09/15/24 12:15 Patient unable to answer at this time (ie. confused, unrespo /Reproduction History /Reproductive History - parking technician: /Reproductive Hx- parking technician Hx Now No 09/15/24 12:15 Gestational Age (in weeks): EDC: Hx Hx Para Hx Section [facility] Medical History (Updated 09/15/24 @ 12:26 by Magalis Romero) Wears glasses Anxiety Ambulates with cane Rheumatoid arthritis History of Crohn's disease Back pain Restless legs TIA (transient ischemic attack) History of IBS Former smoker Shortness of breath on exertion Leg cramps History of edema History of echocardiogram History of stress test Memory change Altered bowel habits Neuropathic pain of both feet Spondylolisthesis, lumbar region Colonoscopy planned Stroke Peripheral nerve disease Hypertension Hiatal hernia Dyslipidemia COPD (chronic obstructive pulmonary disease) Home Medications ?Medication ?Instructions ?Recorded ?Last Taken ?Type calcium carbonate 600 mg PO DAILY 08/20/20 Unk nown History losartan 100 mg tablet 100 mg PO DAILY 08/20/20 Unk nown History multivitamin 1 each PO DAILY 08/20/20 Unk nown History pantoprazole 40 mg tablet,delayed 40 mg PO DAILY 08/20 Unknown History release dicyclomine 10 mg capsule 10 mg PO TID PRN abdominal p ain 05/30/22 Unknown History umeclidinium 62.5 mcg-vilanterol 1 inh inhalation JEN Y 05/30/22 Unknown History 25 mcg/actuation powdr for inhalation (Anoro Ellipta) zolpidem 10 mg tablet 10 mg PO QHS PRN insomnia Unknown History ondansetron 4 mg disintegrating 4 mg PO Q8H PRN PRN Na usea #10 tabs 04/25/23 Unknown Rx tablet epinephrine 0.3 mg/0.3 mL 0.3 mg (0.3 mL) IM Q10M PRN PRN 02/27/24 Unknown Rx injection, auto-injector anaphylaxis #2 ea colestipol 1 gram tablet 1 g PO DAILY 07/30/24 Unknow n History escitalopram oxalate 20 mg tablet 20 mg PO QDAY Unknown History gabapentin 600 mg tablet 600 mg PO TID 07/30/24 Unkno wn History meloxicam 7.5 mg tablet 7.5 mg PO QDAY 07/30/24 Unkn own History sodium sul 1.479 gram-potas ch See Rx Instructions PO PER PKG DIR 08/20/24 Unknown Rx 0.188 gram-magnes sul 0.225 gram #24 tabs tablet (Sutab) Allergy/AdvReac Type Severity Reaction Status Date / Time infliximab-abda (From Allergy Severe Anaphylaxis Verified 09/15/24 12:11 Renflexis) codeine AdvReac Intermediate Nausea Verified 09/15/24 12:11 diphenhydramine (From AdvReac Intermediate Nausea Verified 09/15/24 12:11 Benadryl) Family History Other COPD (chronic obstructive pulmonary disease) CVA (cerebral vascular accident) Colon cancer Heart disease Surgical History H/O: hysterectomy H/O bilateral oophorectomy H/O lithotripsy History of esophagogastroduodenoscopy (EGD) History of back surgery Social History Smoking Status: Former smoker alcohol intake: never Audit: Pertinent Findings Pertinent Findings EKG Perinent findings: August 04, 2024. Sinus rhythm with short [place]. Possible inferior infarct, age undetermined. Stress test pertinent findings: 2020. EF of 82%. No ischemia is noted. No infarct. Echo (EF%) pertinent findings: July 08, 2020. EF of 65%. RVSP is 29 mmHg. No aortic valve stenosis noted. Recommendation Anesthesia Recommendation Anesthesia recommendation: OPTIMIZED for anesthesia
[2024-09-17] VITALS (8 sets, daily range): BP systolic 113–170; BP diastolic 69–90; PULSE 62–77; RESP 16–18; TEMP 36.1–36.3; O2SAT 92–100; BMI 26.4
--- NOTE | 2024-09-17 12:15 | EGD_PTH ---
PATIENT: SHANNON MCCORD LOC: EN U#:[id number] AGE/SX: 79/F ROOM: RE09/17/[address]: Dr. Maksim Jung DO : 1945 BED: DIS: 09/17/2024 SPEC #: [id number] RECD: 09/18/24 07:34 STATUS: SUNG RECatrina #: [id number] LUKAS: 09/17/24 12:[address]: Maksim Jung DEPT: SURGICAL PATHOLOGY RECD BY: Haja Bess ENTERED: 09/18/24 08:52 SP TYPE: EGD BIOPSY THOMAS DR: Dr. Maribell Sanchez MD Tissues: A - Gastric mucous membrane B - COLON BIOPSY Procedures: Immunohistochemical Stains Surgery Specimen Level IV HEADER OPERATION: Colonoscopy, EGD with capsule placement, biopsy PRE-OP DIAGNOSIS: Crohn's disease TISSUE SUBMITTED: A- Gastric body biopsy, B- Random colonic biopsy MICROSCOPIC DIAGNOSIS A. Stomach, gastric body, biopsy: * Antral and oxyntic mucosa with mild chronic inflammation and focal intestinal metaplasia * No morphologic evidence of Helicobacter pylori organisms on H&E and immunostained sections B. Colon, random, biopsy: * Colonic mucosa with no pathologic change MICROSCOPIC DESCRIPTION Slides are reviewed. GROSS DESCRIPTION A. Received in formalin in a container labeled with the patient's name, date of , and gastric body biopsy are 2 barron-pink fragments of mucosal tissue, each measuring 0.4 x 0.4 x 0.3 cm. Submitted in toto in A1. B. Received in formalin in a container labeled with the patient's name, date of , and random colonic biopsy are multiple barron-pink fragments of mucosal tissue measuring 1.0 x 0.8 x 0.3 cm in aggregate. Submitted in toto in B1. [facility] 09-18-2024 CPT:63907s8,02529
--- NOTE | 2024-09-17 12:22 | PCM.PRE.AN2 ---
ASA Classification* ASA Classification ASA Classification: 3 Assessment & Plan Anesthesia* Anesthesia Assessment Anesthesia Assessment: Discussed sedation and/or anesthesia options, risks, benefits, and alternatives with patient/parents/legal guardian/POA. Questions invited. The patient/parents/legal guardian/POA seems to understand and agrees to proceed with anesthesia plan. Reviewed the physical assessment, medical history, allergy history and patient home medications list prior to surgery/procedure/anesthetic and documented any changes. Performed airway and anesthesia risk assessments. Anesthesia Type Anesthesia Type: MAC History Source History Obtained from:: Patient and Chart Anesthesia Focused Assessment* Temperature: 97 F Pulse Rate: 77 Blood Pressure: 170/90 Respiratory Rate: 16 Pulse Ox: 100 Oxygen Delivery Method: Room Air Airway Assessment Mouth opens: >3 cm Mallampati Score: III Teeth Condition: Caps/Crowns (Patient has a couple of crowns. They are tight.) and Partial (Lower partial is out.) Neck Range of motion (ROM): Limited ROM (Slight decrease in extension) Focused Labs Anesthesia Preop lab: CBC WBC 7.0 K/mm3 (4.4-11.0) 08/04/24 08:45 08/04/24 RBC 3.89 M/mm3 (4.2-5.4) L 08/04/24 08:45 08/04/24 Hgb 13.1 g/dL (12.0-15.0) 08/04/24 08:45 08/04/24 Hct 38.4 % (37-47) 08/04/24 08:45 08/04/24 Plt Count 209 K/mm3 (150-450) 08/04/24 08:45 08/04/24 CHEMISTRY Potassium 3.9 mmol/L (3.3-5.1) 08/04/24 08:45 08/04/24 Sodium 138 mmol/L (133-145) 08/04/24 08:45 08/04/24 BUN 14 mg/dL (4-19) 08/04/24 08:45 08/04/24 Creatinine 0.96 mg/dL (0.70-1.20) 08/04/24 08:45 08/04/24 Glucose 111 mg/dL (70-99) H 08/04/24 08:45 08/04/24 TSH 1.19 uIU/mL (0.358-3.74) 05/30/22 16:00 05/30/22 COAG PT 12.7 SECONDS (11.7-14.9) 08/20/20 01:10 08/20/20 Pre-Assessment Diagnosis/Proposed Procedure Planned Operative Procedure(s): EGD, COLONOSCOPY Anesthesia History Anesthesia History - rn liaison: Anesthesia History - rn liaison Hx Hospitalization No 09/15/24 12:15 Any Problems With Anesthesia No 09/15/24 12:15 Cholinesterase deficiency No 09/15/24 12:15 You/Your Family Experience No 09/15/24 12:15 fever (hyperthermia) with Relationship Recent Exposure to Contagious No 09/17/24 11:30 Disease Does patient have nerve No 09/15/24 12:15 stimulator Patient instructed to have device shut off --Does patient have Pacemaker No 09/17/24 11:30 or ICD? When Was Last Pacemaker Check QUESTION #4 FULL TEXT: You/Your Family Experience fever (hyperthermia) with Anesthesia Last Oral Intake Last Oral intake: Last Oral Intake NPO since 06:00 09/17/24 11:30 Meds taken in AM with sips of Yes 09/17/24 11:30 water? Meds patient instructed to take am of surgery Any additional information?: Yes Meds taken in AM with sips of water?: Yes PONV PONV - rn liaison: PONV - rn liaison Female Yes 09/15/24 12:15 HX of Motion Sickness No 09/15/24 12:15 HX of N/V After Surgery No 09/15/24 12:15 Non-Smoker Yes 09/15/24 12:15 Duration of Surgery greater No 09/15/24 12:15 than 60 minutes Number of Risk Factors 2 09/15/24 12:15 PONV Score Moderate Risk 09/15/24 12:15 Height & Weight Height & Weight: Anesthesia: Height & Weight Height 5 ft 2 in 09/17/24 11:30 Weight: 65.6 kg 09/17/24 11:30 Body Mass Index (BMI) 26.4 09/17/24 11:30 Respiratory Assessment Respiratory Assessment - rn liaison: Respiratory Tract Infection Hx - rn liaison Hx Respiratory Tract Infection No 09/15/24 12:15 STOP Sleep Apnea STOP Sleep Apnea - rn liaison: STOP Sleep Apnea - rn liaison Hx Hypertension Yes 09/15/24 12:15 Hx Sleep Apnea No 09/15/24 12:15 CPAP BIPAP Do you snore loudly (louder No 09/15/24 12:15 than talking or can be heard Do you often feel tired/ No 09/15/24 12:15 fatigued/ sleepy during daytime? Has anyone observed you stop No 09/15/24 12:15 breathing during sleep? STOP Results Negative 09/15/24 12:15 QUESTION #5 FULL TEXT : Do you snore loudly (louder than talking or can be heard through closed doors)? 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 Specify any problems Hx of Preganancy in last 3 No 09/15/24 12:15 Months Nurse Filling Out Transfusion VLEHMAN 09/15/24 12:15 & Questions: Date: 09/15/24 09/15/24 12:15 Time: 12:17 09/15/24 12:15 Patient unable to answer at this time (ie. confused, unrespo /Reproduction History /Reproductive History - rn liaison: /Reproductive Hx- rn liaison Hx Now No 09/15/24 12:15 Gestational Age (in weeks): EDC: Hx Hx Para Hx Section SAB Active Medications Active Medications: Current Medications Generic Name Dose Route Start Last Admin Trade Name Freq PRN Reason Stop Dose Admin Lactated Ringer's 1,000 mls @ 15 mls/hr 09/17/24 11:45 IV .Q48H [facility] Medical History Wears glasses Anxiety Ambulates with cane Rheumatoid arthritis History of Crohn's disease Back pain Restless legs TIA (transient ischemic attack) History of IBS Former smoker Shortness of breath on exertion Leg cramps History of edema History of echocardiogram History of stress test Memory change Altered bowel habits Neuropathic pain of both feet Spondylolisthesis, lumbar region Colonoscopy planned Stroke Peripheral nerve disease Hypertension Hiatal hernia Dyslipidemia COPD (chronic obstructive pulmonary disease) Home Medications ?Medication ?Instructions ?Recorded ?Last Taken ?Type calcium carbonate 600 mg PO DAILY 08/20/20 Unknown History losartan 100 mg tablet 100 mg PO DAILY 08/20/20 09/17/24 06:00 History multivitamin 1 each PO DAILY 08/20/20 Unknown History pantoprazole 40 mg tablet,delayed 40 mg PO DAILY 08/20/20 Unknown History release dicyclomine 10 mg capsule 10 mg PO TID PRN abdominal pain 05/30/22 Unknown History umeclidinium 62.5 mcg-vilanterol 1 inh inhalation DAILY 05/30/22 Unknown History 25 mcg/actuation powdr for inhalation (Anoro Ellipta) zolpidem 10 mg tablet 10 mg PO QHS PRN insomnia 05/30/22 Unknown History ondansetron 4 mg disintegrating 4 mg PO Q8H PRN PRN Nausea #10 tabs 04/25/23 Unknown Rx tablet epinephrine 0.3 mg/0.3 mL 0.3 mg (0.3 mL) IM Q10M PRN PRN 02/27/24 Unknown Rx injection, auto-injector anaphylaxis #2 ea colestipol 1 gram tablet 1 g PO DAILY 07/30/24 Unknown History escitalopram oxalate 20 mg tablet 20 mg PO QDAY 07/30/24 Unknown History gabapentin 600 mg tablet 600 mg PO TID 07/30/24 Unknown History meloxicam 7.5 mg tablet 7.5 mg PO QDAY 07/30/24 Unknown History sodium sul 1.479 gram-potas ch See Rx Instructions PO PER PKG DIR 08/20/24 Unknown Rx 0.188 gram-magnes sul 0.225 gram #24 tabs tablet (Sutab) Allergy/AdvReac Type Severity Reaction Status Date / Time infliximab-abda (From Allergy Severe Anaphylaxis Verified 09/17/24 11:27 Renflexis) codeine AdvReac Intermediate Nausea Verified 09/17/24 11:27 diphenhydramine (From AdvReac Intermediate Nausea Verified 09/17/24 11:27 Benadryl) Family History Other COPD (chronic obstructive pulmonary disease) CVA (cerebral vascular accident) Colon cancer Heart disease Surgical History H/O: hysterectomy H/O bilateral oophorectomy H/O lithotripsy History of esophagogastroduodenoscopy (EGD) History of back surgery Social History Smoking Status: Former smoker alcohol intake: never Review of Systems (Anesthesia) ROS Narrative System reviewed and no additional complaints, except as documented.
--- NOTE | 2024-09-17 12:55 | PCM.HP.STD ---
HPI - General General Date of Admission: 09/17/24 Date of Service: 09/17/24 Chief Complaint: Anemia and Crohn's HPI Narrative SHANNON MCCORD, is a 79 F who presents for the evaluation of chronic hx: crohn's dx by last year. 02/27/24 she had an anaphylaxis reaction to Renflexis, changed to Entyvio 03/19/24 and she reports having a medication infusion in June but does not remember the name of the medication. 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 01/06/24 TB/HBV neg, 12/30/23 abd/pelvis CT enterography w/IV/PO-sm intestinal diverticulum 1.3cm,scattered diverticula in sigmoid,steatosis; ileal stricture without upstream dilation, 11/28/23 celiac screen NEG. 04/16/22 EGD-irregular Z-line,erythematous antrum,sm h.hernia;PATH-NEG h.pylori/NEG dysplasia at GEjunction. She reports difficulty swallowing large pills and dry foods. She reports frequent flatulence and abdominal bloating. She reports diarrhea with urgency and incontinence. She has been taking colestipol and Imodium with no real improvement in symptoms. She denies change in water source or food sensitivities. She denies difficulty chewing, reflux, heartburn, nausea, vomiting, hematochezia, melena, and constipation. [facility] Medical History Wears glasses Anxiety Ambulates with cane Rheumatoid arthritis History of Crohn's disease Back pain Restless legs TIA (transient ischemic attack) History of IBS Former smoker Shortness of breath on exertion Leg cramps History of edema History of echocardiogram History of stress test Memory change Altered bowel habits Neuropathic pain of both feet Spondylolisthesis, lumbar region Colonoscopy planned Stroke Peripheral nerve disease Hypertension Hiatal hernia Dyslipidemia COPD (chronic obstructive pulmonary disease) Home Medications ?Medication ?Instructions ?Recorded ?Last Taken ?Type calcium carbonate 600 mg PO DAILY 08/20/20 Unknown History losartan 100 mg tablet 100 mg PO DAILY 08/20/20 09/17/24 06:00 History multivitamin 1 each PO DAILY 08/20/20 Unknown History pantoprazole 40 mg tablet,delayed 40 mg PO DAILY 08/20/20 Unknown History release dicyclomine 10 mg capsule 10 mg PO TID PRN abdominal pain 05/30/22 Unknown History umeclidinium 62.5 mcg-vilanterol 1 inh inhalation DAILY 05/30/22 Unknown History 25 mcg/actuation powdr for inhalation (Anoro Ellipta) zolpidem 10 mg tablet 10 mg PO QHS PRN insomnia 05/30/22 Unknown History ondansetron 4 mg disintegrating 4 mg PO Q8H PRN PRN Nausea #10 tabs 04/25/23 Unknown Rx tablet epinephrine 0.3 mg/0.3 mL 0.3 mg (0.3 mL) IM Q10M PRN PRN 02/27/24 Unknown Rx injection, auto-injector anaphylaxis #2 ea colestipol 1 gram tablet 1 g PO DAILY 07/30/24 Unknown History escitalopram oxalate 20 mg tablet 20 mg PO QDAY 07/30/24 Unknown History gabapentin 600 mg tablet 600 mg PO TID 07/30/24 Unknown History meloxicam 7.5 mg tablet 7.5 mg PO QDAY 07/30/24 Unknown History sodium sul 1.479 gram-potas ch See Rx Instructions PO PER PKG DIR 08/20/24 Unknown Rx 0.188 gram-magnes sul 0.225 gram #24 tabs tablet (Sutab) Allergy/AdvReac Type Severity Reaction Status Date / Time infliximab-abda (From Allergy Severe Anaphylaxis Verified 09/17/24 11:27 Renflexis) codeine AdvReac Intermediate Nausea Verified 09/17/24 11:27 diphenhydramine (From AdvReac Intermediate Nausea Verified 09/17/24 11:27 Benadryl) Family History Other COPD (chronic obstructive pulmonary disease) CVA (cerebral vascular accident) Colon cancer Heart disease Surgical History H/O: hysterectomy H/O bilateral oophorectomy H/O lithotripsy History of esophagogastroduodenoscopy (EGD) History of back surgery Social History Smoking Status: Former smoker alcohol intake: never ROS Constitutional Constitutional: Denies fatigue, fever(s), poor appetite, weight gain or weight loss Gastrointestinal Gastrointestinal: Denies belching, bloating, change in bowel habits, change in stool character, chewing difficulty, coffee ground emesis, constipation, cramping, diarrhea, dyspepsia, dysphagia, early satiety, excessive flatus, fecal incontinence, heartburn, hematemesis, hematochezia, hemorrhoids, loose stools, melena, nausea, odynophagia, rectal bleeding, tenesmus, vomiting or weight changes Vital Signs Vital Signs Vital Signs: 09/17/24 11:30 09/17/24 11:30 09/17/24 12:30 Temperature 97 F L 97 F L Temperature Source Temporal Pulse Rate 77 77 Respiratory Rate 16 16 Respiratory Pattern Normal Blood Pressure 170/90 H 170/90 H Blood Pressure Mean 116 Blood Pressure Source Monitor Blood Pressure Position Semi-Fowlers Blood Pressure Location Right Arm Pulse Ox 100 100 Oxygen Delivery Method Room Air Room Air Weight Weight: 144 lb 9.972 oz Body Mass Index (BMI) 26.4 Physical Exam Const alert, oriented x3, no apparent distress and healthy appearing General Appearance: cooperative GI normal to inspection, nondistended, normoactive bowel sounds, soft to palpation, non-tender and non-distended Percussion: normal to percussion Rectal Exam: deferred Assessment & Plan Assessment/Plan (1) Crohn disease: QUALIFIERS: Gastrointestinal tract location: unspecified location Digestive disease complication type: unspecified complication Qualified Code(s): K50.919 - Crohn's disease, unspecified, with unspecified complications PLAN: Assessment and Plan Assessment and Plan (1) Crohn disease: Status: Acute Qualifiers: Gastrointestinal tract location: unspecified location Digestive disease complication type: unspecified complication Qualified Code(s): K50.919 - Crohn's disease, unspecified, with unspecified complications Orders: Orders CRP Today K50.90 - Crohn's disease, unspecified, without complications Celiac Disease Profile Today K50.90 - Crohn's disease, unspecified, without complications CBC W/Diff, Automated Today K50.10 - Crohn's disease of large intestine without complications, K50.90 - Crohn's disease, unspecified, without complications Allergen, Food Profile 14 Today K50.90 - Crohn's disease, unspecified, without complications Comprehensive Metabolic Profil Today K50.90 - Crohn's disease, unspecified, without complications ENTERIC PATHOGEN PANEL STOOL Today K50.90 - Crohn's disease, unspecified, without complications, K58.9 - Irritable bowel syndrome, unspecified, R19.7 - Diarrhea, unspecified CDIFF (PCR) Today K50.90 - Crohn's disease, unspecified, without complications Pancreatic Elastase, Fecal Today K50.90 - Crohn's disease, unspecified, without complications Stool Occult Blood iFOB Today K50.90 - Crohn's disease, unspecified, without complications Plan SHANNON MCCORD, is a 79 F who presents to the office today for establishment with [facility] for chronic hx: crohn's dx by last year. Discussed care plan with her. schedule capsule endoscopy for complete bowel investigation blood for celiac, inflammation, allergy markers stool for inflammation, enteric,OB markers consider repeat colonoscopy determine medicat
--- NOTE | 2024-09-17 13:46 | OP.CCLET_ITS ---
09/17/2024 Maribell Sanchez [address] [place] [address] Re : Upper GI endoscopy procedure for Vanessa Quinones Dear Dr. Sanchez This procedure was performed on September. My impressions and recommendations are as follows: Impressions : - Normal esophagus. - Chronic gastritis. Biopsied. - No gross lesions in the entire examined duodenum. Recommendations : - Discharge patient to home. - Resume previous diet. - Continue present medications. - Await pathology results. My findings are described in the full procedure note, which is enclosed. If I can be of further assistance, please feel free to contact me at . Sincerely, Maksim Jung, 09/17/2024 1:45:37 PM This report has been signed electronically.
--- NOTE | 2024-09-17 13:48 | OP.COLON_ITS ---
Patient Name: Vanessa Quinones Procedure Date: 09/17/2024 1:18 PM Date of : 1945 Age: 79 Procedure: Colonoscopy Indications: Iron deficiency anemia, Suspected Crohn's disease of the small bowel Providers: Maksim Jung DO Referring MD: Maribell Sanchez Medicines: Monitored Anesthesia Care Patient Profile: This is a 79 year old female. Refer to note in patient chart for documentation of history and physical. Patient has symptoms. Last Colonoscopy: date unknown. Unable to locate last colonoscopy report. Complications: No immediate complications. Procedure: Pre-Anesthesia Assessment: - Prior to the procedure, a History and Physical was performed, and patient medications and allergies were reviewed. The patient is competent. The risks and benefits of the procedure and the sedation options and risks were discussed with the patient. All questions were answered and informed consent was obtained. Patient identification and proposed procedure were verified by the physician in the pre-procedure area. Mental Status Examination: alert and oriented. Airway Examination: normal oropharyngeal airway and neck mobility. Respiratory Examination: clear to auscultation. CV Examination: normal. Prophylactic Antibiotics: The patient does not require prophylactic antibiotics. Prior Anticoagulants: The patient has taken no anticoagulant or antiplatelet agents except for NSAID medication. ASA Grade Assessment: II - A patient with mild systemic disease. After reviewing the risks and benefits, the patient was deemed in satisfactory condition to undergo the procedure. The anesthesia plan was to use monitored anesthesia care (MAC). Immediately prior to administration of medications, the patient was re-assessed for adequacy to receive sedatives. The heart rate, respiratory rate, oxygen saturations, blood pressure, adequacy of pulmonary ventilation, and response to care were monitored throughout the procedure. The physical status of the patient was re-assessed after the procedure. After I obtained informed consent, the scope was passed under direct vision. Throughout the procedure, the patient's blood pressure, pulse, and oxygen saturations were monitored continuously. The was introduced through the anus and advanced to the terminal ileum. The colonoscopy was performed without difficulty. The patient tolerated the procedure well. The quality of the bowel preparation was adequate. The terminal ileum, ileocecal valve, appendiceal orifice, and rectum were photographed. Scope In: 1:20:56 PM Scope Withdrawal Time 0 hours 9 minutes 38 seconds Scope Out: 1:36:20 PM Total Procedure Duration Time 0 hours 15 minutes 24 seconds Findings: The perianal and digital rectal examinations were normal. A few small-mouthed diverticula were found in the recto-sigmoid colon, sigmoid colon and descending colon. An area of moderately congested mucosa was found in the sigmoid colon. Biopsies were taken with a cold forceps for histology. Verification of patient identification for the specimen was done. Estimated blood loss was minimal. The exam was otherwise without abnormality on direct and retroflexion views. Impression: - Diverticulosis in the recto-sigmoid colon, in the sigmoid colon and in the descending colon. - Congested mucosa in the sigmoid colon. Biopsied. - The examination was otherwise normal on direct and retroflexion views. Recommendation: - Discharge patient to home. - Resume previous diet. - Continue present medications. - Await pathology results. - Repeat colonoscopy for surveillance based on pathology results. Procedure Code(s): --- Professional --- 07564, Colonoscopy, flexible; with biopsy, single or multiple CPT copyright 2021 [employer]. All rights reserved. The codes documented in this report are preliminary and upon winery worker review may be revised to meet current compliance requirements. Maksim Jung DO 09/17/2024 1:48:24 PM This report has been signed electronically. Number of Addenda: 0 Note Initiated On: 09/17/2024 1:18 PM
--- NOTE | 2024-09-17 13:49 | OP.CCLET_ITS ---
09/17/2024 Maribell Sanchez [address] [place] [address] Re : Colonoscopy procedure for Vanessa Quinones Dear Dr. Sanchez This procedure was performed on September. My impressions and recommendations are as follows: Impressions : - Diverticulosis in the recto-sigmoid colon, in the sigmoid colon and in the descending colon. - Congested mucosa in the sigmoid colon. Biopsied. - The examination was otherwise normal on direct and retroflexion views. Recommendations : - Discharge patient to home. - Resume previous diet. - Continue present medications. - Await pathology results. - Repeat colonoscopy for surveillance based on pathology results. My findings are described in the full procedure note, which is enclosed. If I can be of further assistance, please feel free to contact me at . Sincerely, Maksim Jung, 09/17/2024 1:48:24 PM This report has been signed electronically.
--- NOTE | 2024-09-17 13:49 | PCM.POST.ANE ---
Anesthesia: Postop Eval I Current Vital Signs Temperature: 97.4 F Pulse Rate: 67 Blood Pressure: 113/69 Respiratory Rate: 16 Pulse Ox: 96 Oxygen Delivery Method: Room Air Assessment Airway patent: Yes Spontaneous unlabored respirations: Yes Mental status: Asleep nausea: No Vomiting: No Anesthesia Complication: No Fluid Hydration Crystalloid volume administer (ml): 700 Total IV fluid infused: 700 Progress Note Anesthesia document: Postop Eval 1 completed: Yes
--- NOTE | 2024-09-17 15:35 | PCM.POSTANE2 ---
Anesthesia Postop Eval I Sum Postop Eval Completion status Anesthesia document: Postop Eval 1 completed: Yes Anesthesia Postop Eval I Summary Anesthesia Postop Eval I Summary: Anesthesia Postop Eval I: Assessment Summary Airway patent Yes 09/17/24 13:50 [email or web address] Spontaneous unlabored Yes 09/17/24 13:50 [email or web address] respirations Mental status Asleep 09/17/24 13:50 [email or web address] nausea No 09/17/24 13:50 [email or web address] Vomiting No 09/17/24 13:50 [email or web address] Anesthesia Postop Eval I: Fluid Summary Crystalloid volume administer 700 09/17/24 13:50 [email or web address] (ml) Colloids volume administered ( ml) Blood Product volume administered (ml) Total IV fluid infused 700 09/17/24 13:50 [email or web address] Anesthesia Postop Eval I: Summary Notes Anesthesia Complication No 09/17/24 13:50 [email or web address] Anesthesia Complication Comment: Post-operative progress note Anesthesia: Postop Eval II Evaluation Mental status: Awake and Calm Pain Level: 0 nausea: No Vomiting: No Complications Anesthesia Complication: No
== END 2024-09-17 14:50 | disposition home or self-care (01) ==
LOC: EN 11:07 → AC 11:08
PROVIDERS: PCP Internal Medicine; Referring Provider Internal Medicine; Visit Provider Internal Medicine Gastroenterology
PROC: 0DJD8ZZ Inspection of Lower Intestinal Tract, Via Natural or Artificial Opening Endoscopic (ICD-10-PCS; CPT 45378; principal; 2024-09-17 12:10)
DX: K50.90 Crohn's disease, unspecified, without complications (principal); J44.9 Chronic obstructive pulmonary disease, unspecified; K29.50 Unspecified chronic gastritis without bleeding; I10 Essential (primary) hypertension; K63.89 Other specified diseases of intestine; K31.89 Other diseases of stomach and duodenum; K57.30 Diverticulosis of large intestine without perforation or abscess without bleeding; D50.9 Iron deficiency anemia, unspecified; Z87.891 Personal history of nicotine dependence; Z79.899 Other long term (current) drug therapy; Z86.73 Personal history of transient ischemic attack (TIA), and cerebral infarction without residual deficits
CPT/HCPCS: 43239; 45380; 88305; 88342; C1889; J2405

== ENCOUNTER → 2024-10-13 | Outpatient (CLI) | payer MEDICARE, OTHER, SELFPAY ==
[2024-10-16 07:08] LABS: Calprotectin, Stool 100 ug/g (0-120)
== END | disposition home or self-care (01) ==
LOC: LABSPEC 14:00
PROVIDERS: PCP Internal Medicine
DX: K50.919 Crohn's disease, unspecified, with unspecified complications (principal)
CPT/HCPCS: 83993

== ENCOUNTER 2025-03-05 15:38 | Observation (INO) | payer MEDICARE, OTHER, SELFPAY ==
[2025-03-05] VITALS (10 sets, daily range): BP systolic 108–203; BP diastolic 77–153; PULSE 76–100; RESP 16–22; TEMP 36.3–36.8; O2SAT 97–100; BMI 26.2; BMI 26.6
--- NOTE | 2025-03-05 15:50 | EKG12_ITS ---
Test Reason : STROKE
--- NOTE | 2025-03-05 15:50 | CT_ITS ---
PROCEDURE: CT/STROKE CTA Head AND Neck W/Con
--- NOTE | 2025-03-05 15:50 | CT_ITS ---
PROCEDURE: CT/STROKE Brain/Head without Cont
--- NOTE | 2025-03-05 15:50 | EX.ED.DYSGE1 ---
HPI History of Present Illness Chief Complaint: Stroke Alert Narrative Narrative: Patient is a 79-year-old female with a past medical history anxiety, rheumatoid arthritis, TIA, hypertension, COPD who presented to the emergency department with a chief complaint of elevated blood pressure, left leg numbness, confusion, difficulty speaking. According to the patient she states that around midnight yesterday she was not feeling her normal self she felt dizzy states that she woke up this morning and notes that she felt very weak and did not want to take a shower she is concerned that she may fall. She states that her blood pressure has been running extremely high recently as well. According to the he states that he has noticed that for the last 1 to 2 weeks he has had some increased difficulty understanding her when she speaks he states that this has been going on and is not new today as noted in triage that I was told that she had difficulty speaking around 1:00 this afternoon. He states that this is not the case. He states that he is concerned that he she may be developing dementia as well. He states that she showed him her blood pressure earlier today and was very concerned about this therefore she was brought here. She was a stroke alert from triage. [facility] Medical History Wears glasses Anxiety Ambulates with cane Rheumatoid arthritis History of Crohn's disease Back pain Restless legs TIA (transient ischemic attack) History of IBS Former smoker Shortness of breath on exertion Leg cramps History of edema History of echocardiogram History of stress test Memory change Altered bowel habits Neuropathic pain of both feet Spondylolisthesis, lumbar region Colonoscopy planned Stroke Peripheral nerve disease Hypertension Hiatal hernia Dyslipidemia COPD (chronic obstructive pulmonary disease) Home Medications ?Medication ?Instructions ?Recorded ?Last Taken ?Type calcium carbonate 600 mg PO DAILY 08/20/20 Unknown History losartan 100 mg tablet 100 mg PO DAILY 08/20/20 09/17/24 06:00 History multivitamin 1 each PO DAILY 08/20/20 Unknown History umeclidinium 62.5 mcg-vilanterol 1 inh inhalation DAILY 05/30/22 Unknown History 25 mcg/actuation powdr for inhalation (Anoro Ellipta) zolpidem 10 mg tablet 10 mg PO QHS PRN insomnia 05/30/22 Unknown History epinephrine 0.3 mg/0.3 mL 0.3 mg (0.3 mL) IM Q10M PRN PRN 02/27/24 Unknown Rx injection, auto-injector anaphylaxis #2 ea colestipol 1 gram tablet 1 g PO DAILY 07/30/24 Unknown History escitalopram oxalate 20 mg tablet 20 mg PO QDAY 07/30/24 Unknown History gabapentin 600 mg tablet 600 mg PO TID 07/30/24 Unknown History meloxicam 7.5 mg tablet 7.5 mg PO QDAY 07/30/24 Unknown History sodium sul 1.479 gram-potas ch See Rx Instructions PO PER PKG DIR 08/20/24 Unknown Rx 0.188 gram-magnes sul 0.225 gram #24 tabs tablet (Sutab) cetirizine 10 mg tablet 10 mg PO QDAY PRN 10/08/24 Unknown History cholecalciferol (vitamin D3) 1,250 1,250 mcg PO QWEEK 10/08/24 Unknown History mcg (50,000 unit) capsule lansoprazole 30 mg capsule,delayed 30 mg PO BID #60 caps 10/08/24 Unknown Rx release ropinirole 2 mg tablet 2 mg PO QDAY 10/08/24 Unknown History methocarbamol 500 mg tablet 500 mg PO TID PRN pain/spasms #30 12/11/24 Unknown Rx tabs diphenoxylate-atropine 2.5 1 tab PO BID PRN diarrhea #60 tabs 01/05/25 Unknown Rx mg-0.025 mg tablet (Lomotil) Allergy/AdvReac Type Severity Reaction Status Date / Time infliximab-abda (From Allergy Severe Anaphylaxis Verified 03/05/25 15:47 Renflexis) codeine AdvReac Intermediate Nausea Verified 03/05/25 15:47 diphenhydramine (From AdvReac Intermediate Nausea Verified 03/05/25 15:47 Benadryl) Family History Other COPD (chronic obstructive pulmonary disease) CVA (cerebral vascular accident) Colon cancer Heart disease Surgical History H/O: hysterectomy H/O bilateral oophorectomy H/O lithotripsy History of esophagogastroduodenoscopy (EGD) History of back surgery Social History Smoking Status: Former smoker alcohol intake: never ROS ROS ED ROS Narrative Constitutional: Complaint of dizziness, headaches, lightheadedness and not feeling her normal self Eyes: Denies double vision blurry vision Cardiovascular: Denies chest pain Respiratory: No shortness of breath Abdomen: Complained of nausea vomiting diarrhea per at bedside : Denies urinary symptoms Neurological: Complains of generalized weakness and left leg numbness and tingling Musculoskeletal: Denies back pain Skin: Denies any rashes or lesions EXAM Physical Exam Narrative Exam Narrative: General: Patient was sitting in triage in a chair was tearful Head: Atraumatic, normocephalic Eyes: PERRL bilaterally, EOMI bilaterally, no conjunctival injection noted Neck: Soft, supple, trachea midline Cardiovascular: Regular rate and rhythm Respiratory: Clear to auscultation bilaterally Extremities: +4/5 strength noted in the bilateral lower extremities Neurological: Patient complains of decreased sensation in the left lower extremity when compared to the right. NIH of 1 GCS 15 Skin: Warm, dry, intact no rashes or lesions noted Const Vital Signs: 03/05/25 15:42 03/05/25 15:42 03/05/25 15:51 Temperature 98.2 F 98.2 F Temperature Source Oral Oral Pulse Rate 100 100 Respiratory Rate 16 16 Blood Pressure 203/153 H 203/153 H Blood Pressure Mean 169 169 Pulse Ox 99 99 Oxygen Delivery Method Room Air Room Air Room Air 03/05/25 16:00 03/05/25 16:30 03/05/25 16:42 Temperature Temperature Source Pulse Rate 85 86 82 Respiratory Rate 16 19 H 18 Blood Pressure 157/97 H 150/83 H Blood Pressure Mean 117 105 Pulse Ox 98 98 Oxygen Delivery Method Room Air Room Air 03/05/25 16:45 Temperature Temperature Source Pulse Rate 85 Respiratory Rate 16 Blood Pressure Blood Pressure Mean Pulse Ox 99 Oxygen Delivery Method MDM MDM MDM Narrative Medical decision making narrative: Patient is a 79-year-old female who presented to the emergency department with a chief complaint of difficulty speaking, generalized weakness, left lower extremity numbness and tingling, hypertensive emergency, intracranial hemorrhage. Once workup is obtained reviewed she will be reevaluated. Patient is not a tenecteplase candidate as her last known well is unknown. It appears to be within the last 1 to 2 weeks with progression of her symptoms. Patient is a CBC reviewed and showed no evidence leukocytosis white blood count normal 8.7, hemoglobin 13.9, plate count of 219. Patient INR normal at 0.9, PT of 12.6. Patient sodium was 139, potassium normal 4.2, creatinine 0.97. Patient's troponin was 9. Patient's EKG reviewed showed sinus rhythm with a rate of 86 bpm [place] interval 150. Patient's CT head and brain without contrast showed no acute intracranial abnormalities. Patient CTA head and neck reviewed and showed no evidence of LVO no significant hemodynamic stenosis within the neck either. Spoke with [facility] teleneurology Dr. Earl who is in agreement with me and the patient is not a tenecteplase candidate he is recommending admission for further stroke workup however is also recommending full spine MRI to rule out any spine pathology with regards to her weakness and numbness and tingling as she has a history of spinal stenosis requiring surgery. Will discuss case with hospitalist for admission. Will give 325 mg of aspirin. She was complaint of headache she will be given Reglan and Tylenol. Discussed case with hospitalist Dr. Garcia who accept the patient for admission. Patient was notified as well as at bedside all question concerns answered. Lab Data Labs: Laboratory Results - last 24 hr 03/05/25 15:45 WBC 8.7 RBC 3.99 L Hgb 13.9 Hct 38.9 MCV 97.5 MCH 34.8 H MCHC 35.7 RDW Std Deviation 48.7 H RDW Coeff of Bradley 13.5 Plt Count 219 MPV 8.7 Immature Gran % (Auto) 0.200 Neut % (Auto) 53.8 Lymph % (Auto) 36.3 [place] % (Auto) 6.6 Eos % (Auto) 2.5 Baso % (Auto) 0.6 Absolute Neuts (auto) 4.7 Absolute Lymphs (auto) 3.15 Nucleated RBC % 0 PT 12.6 INR 0.9 APTT 30.8 Sodium 139 Potassium 4.2 Chloride 105 Carbon Dioxide 25.0 Anion Gap 9 BUN 18 Creatinine 0.97 Estim Creat Clear Calc 41.65 L Est GFR (MDRD) Non-Af 59 L BUN/Creatinine Ratio 18.4 Glucose 130 H Calcium 9.6 Troponin T High Sens 9 Radiography Diagnostic Testing: Clinical Impression(s) from Imaging Studies Brain CT 03/05/25 15:50 IMPRESSION: No acute intracranial abnormalities. Stroke Alert: No acute intracranial abnormalities. The critical findings in the findings and impression above were relayed directly by me by telephone toBender On 03/05/2025 at 4:06 pm with readback verification. Reading Location: [id number] Head/Neck CTA 03/05/25 15:50 IMPRESSION: No hemodynamically significant stenosis in the head and neck. Reading Location: [id number] Discharge Plan Dx/Rx/DC Orders Clinical Impression: Left leg numbness, Left arm weakness, Hypertension, Bilateral lumbar radiculopathy, Lumbar stenosis with neurogenic claudication Disposition Disposition: Acute Care Hospital [facility]
[2025-03-05 15:58] LABS: Hematocrit 38.9 % (37-47); Hemoglobin 13.9 g/dL (12.0-15.0); Immature Granulocytes Count 0.020 X10^3/uL (0.0-0.0); Mean Corp Hgb Conc 35.7 g/dL (32-36); Mean Corpuscular Volume 97.5 fL (81-99); Mean Platelet Vol. 8.7 fl (6.2-12.0); NRBC Flagged by Analyzer 0 % (0-5); Platelet Count 219 K/mm3 (150-450); RBC Distribution Width CV 13.5 % (11.6-14.6); RBC Distribution Width SD 48.7 fl (35.1-43.9); Red Blood Count 3.99 M/mm3 (4.2-5.4); White Blood Count 8.7 K/mm3 (4.4-11.0)
[2025-03-05 16:12] LABS: Prothrombin Time (Protime)PT. 12.6 SECONDS (11.7-14.9)
[2025-03-05 16:13] LABS: Partial Thromboplast Time 30.8 Seconds (24.1-36.2)
[2025-03-05 16:21] LABS: Anion Gap 9 (5-15); BUN 18 mg/dL (4-19); BUN/Creat Ratio 18.4 RATIO (10-20); Calcium,Total 9.6 mg/dL (7.6-11.0); Carbon Dioxide 25.0 mmol/L (21.0-32.0); Chloride 105 mmol/L (98-108); Estimated Creatinine Clearance 41.65 ml/min (50-250); Glucose 130 mg/dL (70-99); Potassium 4.2 mmol/L (3.3-5.1); Troponin T High Sensitivity 9 ng/L (<=14)
--- NOTE | 2025-03-05 16:40 | RAD_ITS ---
PROCEDURE: RAD/Chest 1 View
[2025-03-05 17:11] LABS: Mucous, Urine 0 SEEN /hpf (<or=2+); Red Blood Cells-Urine 0 SEEN /hpf (0-5); Squamous Epithelial Cells - UA 0 SEEN /hpf (5-10)
--- NOTE | 2025-03-05 17:22 | PCM.HP.STD ---
[facility] - General General Date of Admission: 03/05/25 Date of Service: 03/05/25 Chief Complaint: left lower extremity weakness, difficulty walking, slurred speech HPI Narrative SHANNON MCCORD, is a 79-year-old female history of anxiety, TIA, hypertension, COPD, GERD, restless leg syndrome who presented [facility] ED 03/05/2025 with elevated blood pressure, left leg numbness, confusion and difficulty speaking. She was a stroke alert in the ED. On arrival temp 98.2, heart rate 100 and blood pressure initially 2 3/153 with repeat 15 minutes later of 157/97, respirate 16 pulse ox 99% on room air. CBC with a normal white count of 8.7, hemoglobin 13.9. BMP with a BUN of 18 and creatinine 0.97, glucose 130. CT brain and CTA head and neck no acute process. Teleneurology evaluated, patient reportedly has been having issues for several days and has had a hard time understanding her for couple of days and notes some slurred speech. Patient woke up this a.m. feeling dizzy and lightheaded and was noted to have some left-sided weakness. Patient outside the window for lytics. They recommended local admission with MRI brain, cervical/thoracic/and lumbar spine and complete stroke workup. Hospitalist contacted for admission. Patient evaluated bedside with present. Very difficult to establish history as symptoms have been present for various amount of time. Reports over the last week she has been having intermittent lightheaded episodes with intermittent confusion and difficulty speaking and over the past couple days she has had difficulty ambulating due to her left leg feeling weaker than her right and notes it feels heavy and has some sensation change. On further discussion during exam she also notes that she has a little bit of change in sensation on her left arm as well. She has other vague complaints like headaches over the past couple of months intermittently with no acute change. Denies any changes in vision acutely. Notes some chronic low back pain that goes towards her right hip, has a history of a lumbar fusion and follows with Dr. Rahman and last received an injection a couple of months ago for reports it is not very helpful. Patient denies any burning when she pees, reports sometimes it will take longer to pee than it previously did but is also struggled intermittently with alternating diarrhea and constipation, earlier today she had some vague abdominal pain and had diarrhea followed but nauseous, per her and this is not new and she has this intermittently. She also reports over the past month or so she has some left lower chest wall aching like a toothache with no exacerbating or relieving factors. [facility] Medical History Wears glasses Anxiety Ambulates with cane Rheumatoid arthritis History of Crohn's disease Back pain Restless legs TIA (transient ischemic attack) History of IBS Former smoker Shortness of breath on exertion Leg cramps History of edema History of echocardiogram History of stress test Memory change Altered bowel habits Neuropathic pain of both feet Spondylolisthesis, lumbar region Colonoscopy planned Stroke Peripheral nerve disease Hypertension Hiatal hernia Dyslipidemia COPD (chronic obstructive pulmonary disease) Home Medications ?Medication ?Instructions ?Recorded ?Last Taken ?Type losartan 100 mg tablet 100 mg PO DAILY 08/20/20 09/17/24 06:00 History umeclidinium 62.5 mcg-vilanterol 1 inh inhalation DAILY 05/30/22 Unknown History 25 mcg/actuation powdr for inhalation (Anoro Ellipta) zolpidem 10 mg tablet 10 mg PO QHS PRN insomnia 05/30/22 Unknown History epinephrine 0.3 mg/0.3 mL 0.3 mg (0.3 mL) IM Q10M PRN PRN 02/27/24 Unknown Rx injection, auto-injector anaphylaxis #2 ea gabapentin 600 mg tablet 600 mg PO TID 07/30/24 Unknown History meloxicam 7.5 mg tablet 7.5 mg PO QDAY 07/30/24 Unknown History cetirizine 10 mg tablet 10 mg PO QDAY PRN ALLERGY 10/08/24 Unknown History lansoprazole 30 mg capsule,delayed 30 mg PO BID #60 caps 10/08/24 Unknown Rx release ropinirole 2 mg tablet 2 mg PO QDAY 10/08/24 Unknown History diphenoxylate-atropine 2.5 1 tab PO BID PRN diarrhea #60 tabs 01/05/25 Unknown Rx mg-0.025 mg tablet (Lomotil) Hyoscamine 03/05/25 Unknown History loratadine 10 mg tablet 10 mg PO PRN 03/05/25 Unknown History (Allerclear) Allergy/AdvReac Type Severity Reaction Status Date / Time infliximab-abda (From Allergy Severe Anaphylaxis Verified 03/05/25 15:47 Renflexis) codeine AdvReac Intermediate Nausea Verified 03/05/25 15:47 diphenhydramine (From AdvReac Intermediate Nausea Verified 03/05/25 15:47 Benadryl) Family History Other COPD (chronic obstructive pulmonary disease) CVA (cerebral vascular accident) Colon cancer Heart disease Surgical History H/O: hysterectomy H/O bilateral oophorectomy H/O lithotripsy History of esophagogastroduodenoscopy (EGD) History of back surgery Social History Smoking Status: Former smoker alcohol intake: never ROS ROS Narrative General: Denies fever/chills HENT: Intermittent headaches, denies stuffy nose, denies sore throat EYES: Denies changes in vision Resp: Denies cough, denies shortness of breath Cardiac: Reports on the left lateral area of chest she will feel like she has a toothache which has not acutely changed GI: Has some vague abdominal pain intermittently associated with alternating diarrhea and constipation and occasional nausea noted which is new\ : Denies any burning on urination, reports is little bit more difficult to urinate than it was previously but is able to urinate Extremity: Denies swelling MSK: Generalized weakness but more so left lower extremity Neuro: Some decrease sensation in left upper and lower extremity Heme: Denies any bleeding or bruising Skin: Denies rashes Psychiatric: No complaints voiced Vital Signs Vital Signs Vital Signs: 03/05/25 15:42 03/05/25 15:42 03/05/25 15:51 Temperature 98.2 F 98.2 F Temperature Source Oral Oral Pulse Rate 100 100 Respiratory Rate 16 16 Blood Pressure 203/153 H 203/153 H Blood Pressure Mean 169 169 Pulse Ox 99 99 Oxygen Delivery Method Room Air Room Air Room Air 03/05/25 16:00 03/05/25 16:30 03/05/25 16:42 Temperature Temperature Source Pulse Rate 85 86 82 Respiratory Rate 16 19 H 18 Blood Pressure 157/97 H 150/83 H Blood Pressure Mean 117 105 Pulse Ox 98 98 Oxygen Delivery Method Room Air Room Air 03/05/25 16:45 03/05/25 16:45 03/05/25 17:00 Temperature Temperature Source Pulse Rate 85 81 Respiratory Rate 16 21 H Blood Pressure 108/84 H 155/109 H Blood Pressure Mean 92 116 Pulse Ox 99 97 Oxygen Delivery Method 03/05/25 17:14 03/05/25 17:15 Temperature 98.2 F Temperature Source Pulse Rate 85 79 Respiratory Rate 16 22 H Blood Pressure 155/109 H 141/120 H Blood Pressure Mean 124 129 Pulse Ox 99 Oxygen Delivery Method Weight Weight: 65.091 kg Body Mass Index (BMI) 26.2 Physical Exam Narrative General: Alert, answers most questions appropriately but sometimes gets off track or forgets what the question was no apparent distress HEENT: Atraumatic, normocephalic Eyes: Anicteric, normal conjunctiva, extraocular movements intact, pupils equal Neck: Supple Respiratory: Clear to auscultation bilaterally, normal respiratory effort Cardiovascular: Regular rate and rhythm GI: Soft, nontender, nondistended Extremities: No edema Musculoskeletal: Strength 5 out of 5 in right upper extremity, 5 out of 5 left upper extremity, 3 out of 5 right lower extremity, 3 - out of 5 left lower extremity Neuro: cranial nerves II through XII intact, had decreased sensation in left lower extremity but also noted some decrease sensation in left upper extremity Skin: No rashes appreciated Psych: Cooperative Results Lab / Micro Data 03/05/25 15:45 03/05/25 15:45 Labs: Laboratory Results - last 24 hr 03/05/25 15:45: WBC 8.7, RBC 3.99 L, Hgb 13.9, Hct 38.9, MCV 97.5, MCH 34.8 H, MCHC 35.7, RDW Std Deviation 48.7 H, RDW Coeff of Bradley 13.5, Plt Count 219, MPV 8.7, Immature Gran % (Auto) 0.200, Neut % (Auto) 53.8, Lymph % (Auto) 36.3, [place] % (Auto) 6.6, Eos % (Auto) 2.5, Baso % (Auto) 0.6, Absolute Neuts (auto) 4.7, Absolute Lymphs (auto) 3.15, Nucleated RBC % 0, PT 12.6, INR 0.9, APTT 30.8, Sodium 139, Potassium 4.2, Chloride 105, Carbon Dioxide 25.0, Anion Gap 9, BUN 18, Creatinine 0.97, Estim Creat Clear Calc 41.65 L, Est GFR (MDRD) Non-Af 59 L, BUN/Creatinine Ratio 18.4, Glucose 130 H, Calcium 9.6, Troponin T High Sens 9 Imaging Radiology Impression Brain CT 03/05/25 15:50 IMPRESSION: No acute intracranial abnormalities. Stroke Alert: No acute intracranial abnormalities. The critical findings in the findings and impression above were relayed directly by me by telephone toBender On 03/05/2025 at 4:06 pm with readback verification. Reading Location: [facility] Head/Neck CTA 03/05/25 15:50 IMPRESSION: No hemodynamically significant stenosis in the head and neck. Reading Location: [facility] Chest X-Ray 03/05/25 16:40 IMPRESSION: No Acute Findings. Reading Location[facility] Assessment & Plan Assessment/Plan (1) Left-sided weakness: PLAN: Plan # Slurred speech, left-sided weakness -Admit to tele -CT head w/ no acute process -CTA head and neck no LVO -MRI ordered -NIH q4hr -asa, statin -Echo ordered -PT/OT/Speech eval -Teleneuro consult ordered -Hold BP medications to allow for permissive hypertension for 24 hours unless SBP greater than 220 or DBP greater than 120 or until stroke is ruled out, given patient had symptoms for a couple of days however seem to have further acute changes today will do permissive hypertension as above - Teleneuro also recommended MRI of cervical/thoracic/lumbar spine to rule out any other spinal pathology that could contribute to lower extremity symptoms however given patient also has some left upper extremity symptoms and had some difficulty with her speech unclear if this explains whole constellation of symptoms but cannot rule it out. Patient has some vague back pain that is not new and is not reporting any pain into her left leg, has the decreased sensation of both the left upper and lower extremity and did not report any loss of sensation on the right leg though would be consistent with saddle anesthesia, no loss of bowel or bladder control. Will order MRIs as recommended - Obtaining UA as some of patient's symptoms are more global in nature, will also check lipid panel, A1c, TSH, magnesium, B12 Appears to have had an increased in her gabapentin dose, previously was filling 30 tabs of 600 mg gabapentin however earlier this month it was increased to 90 tabs of 600 mg, will need to clarify how patient is taking this given her estimated creatinine clearance is 41 so this elevated dose may be causing some of her systemic symptoms including her intermittent confusion, lightheadedness, slurred speech. Will decrease to 200 3 times daily for now and assess response #Hx COPD -Continue home inhalers -Incentive spirometer #GERD -Continue PPI # Restless leg syndrome -continue patient's home medication regimen #Hypertension - Holding home medications as above #Hx Crohn's disease - Follows outpatient with GI #DVT ppx: MADAIs Myrna Garcia MD Charges/Coding Visit Charges Inpatient E&M: 46010 Init Hosp L2
[2025-03-05 17:28] LABS: Color, Urine Yellow (Yellow); Glucose, Dipstick Normal (Normal); Ketone-Dipstick Negative (Negative); Leukocyte Esterase-Dipstick Negative /ul (Negative); Nitrite-Dipstick Negative (Negative); Occult Blood-Urine Negative /ul (Negative); Protein-Dipstick 15 mg/dl (Negative); Specific Gravity, Urine 1.005 (1.002-1.030); Urine Bilirubin Dipstick Negative (Negative)
--- NOTE | 2025-03-05 17:37 | ECHOD_ITS ---
Reason For Study ECHO/Echo Complete
--- NOTE | 2025-03-05 17:37 | MRI_ITS ---
PROCEDURE: MRI/Brain without Contrast
--- NOTE | 2025-03-05 17:43 | MRI_ITS ---
PROCEDURE: MRI/Spine Cervical (Routine)
--- NOTE | 2025-03-05 17:43 | MRI_ITS ---
PROCEDURE: MRI/Spine Thoracic (Routine)
--- NOTE | 2025-03-05 17:43 | MRI_ITS ---
PROCEDURE: MRI/Spine Lumbar (Routine)
[2025-03-05 20:24] LABS: Troponin T High Sens 2 HR 11 ng/L (<=14)
[2025-03-05] MEDS: MELATONIN 10 MG TABLET PO (21:53)
[2025-03-05 22:08] LABS: Troponin T High Sens 4 HR 10 ng/L (<=14)
[2025-03-06 05:30] VITALS: BP 133/83; PULSE 80; RESP 16; TEMP 36.3; O2SAT 98
[2025-03-06 06:37] LABS: Hematocrit 35.9 % (37-47); Hemoglobin 12.5 g/dL (12.0-15.0); Immature Granulocytes Count 0.020 X10^3/uL (0.0-0.0); Mean Corp Hgb Conc 34.8 g/dL (32-36); Mean Corpuscular Volume 98.1 fL (81-99); Mean Platelet Vol. 9.0 fl (6.2-12.0); NRBC Flagged by Analyzer 0 % (0-5); Platelet Count 179 K/mm3 (150-450); RBC Distribution Width CV 13.7 % (11.6-14.6); RBC Distribution Width SD 49.4 fl (35.1-43.9); Red Blood Count 3.66 M/mm3 (4.2-5.4); White Blood Count 7.0 K/mm3 (4.4-11.0)
[2025-03-06 07:23] LABS: Cholesterol 261 mg/dL (<=200); Low Density Lipoprotein Calc. 166 mg/dL; Magnesium 2.0 mg/dL (1.5-2.2); Triglycerides 309 mg/dL; Very Low Density Lipoprotein 62 mg/dL (5-40); Vitamin B12 288 pg/mL (180-914); cholesterol:hdl ratio screen 7.27
[2025-03-06 07:26] LABS: Anion Gap 12 (5-15); BUN 15 mg/dL (4-19); BUN/Creat Ratio 16.8 RATIO (10-20); Calcium,Total 9.5 mg/dL (7.6-11.0); Carbon Dioxide 23.6 mmol/L (21.0-32.0); Chloride 105 mmol/L (98-108); Estimated Creatinine Clearance 46.09 ml/min (50-250); Glucose 113 mg/dL (70-99); Potassium 3.7 mmol/L (3.3-5.1)
--- NOTE | 2025-03-06 08:18 | PN.HOSP_ITS ---
Reason for Visit
--- NOTE | 2025-03-06 08:18 | PCM.PN.HOSP ---
Reason for Visit Chief Complaint: left lower extremity weakness, difficulty walking, slurred speech Subjective Subjective Still feeling weak in her left leg Objective Data Objective Data Vital Signs: Vital Signs Temp Pulse Resp BP Pulse Ox O2 Del Method 36.3 C L 80 16 133/83 H 98 Room Air 03/06/25 05:30 03/06/25 05:30 03/06/25 05:30 03/06/25 05:30 03/06/25 05:30 03/06/25 05:30 Oxygen Delivery Method Room Air Weight: 67.268 kg Body Mass Index (BMI) 26.6 Intake & Output: Intake and Output for Last 24 Hours 03/04/25 03/05/25 03/06/25 23:59 23:59 23:59 Intake Total 550 / 550 Balance 550 / 550 Lab / Micro Data 03/06/25 05:19 03/06/25 05:19 Labs: Laboratory Results - last 24 hr 03/05/25 15:45: WBC 8.7, RBC 3.99 L, Hgb 13.9, Hct 38.9, MCV 97.5, MCH 34.8 H, MCHC 35.7, RDW Std Deviation 48.7 H, RDW Coeff of Bradley 13.5, Plt Count 219, MPV 8.7, Immature Gran % (Auto) 0.200, Neut % (Auto) 53.8, Lymph % (Auto) 36.3, [place] % (Auto) 6.6, Eos % (Auto) 2.5, Baso % (Auto) 0.6, Absolute Neuts (auto) 4.7, Absolute Lymphs (auto) 3.15, Nucleated RBC % 0, PT 12.6, INR 0.9, APTT 30.8, Sodium 139, Potassium 4.2, Chloride 105, Carbon Dioxide 25.0, Anion Gap 9, BUN 18, Creatinine 0.97, Estim Creat Clear Calc 41.65 L, Est GFR (MDRD) Non-Af 59 L, BUN/Creatinine Ratio 18.4, Glucose 130 H, Calcium 9.6, Troponin T High Sens 9 03/05/25 17:00: Urine Color Yellow, Urine Clarity Clear, Urine pH 6.0, Ur Specific [place] 1.005, Urine Protein 15 H, Urine Glucose (UA) Normal, Urine Ketones Negative, Urine Occult Blood Negative, Urine Nitrite Negative, Urine Bilirubin Negative, Urine Urobilinogen Normal, Ur Leukocyte Esterase Negative, Urine RBC 0 SEEN, Urine WBC 0-5 SEEN, Ur Squamous Epith Cells 0 SEEN, Urine Bacteria 0 SEEN, Urine Mucus 0 SEEN 03/05/25 19:47: Troponin T Hi Sens 2 Hr 11 03/05/25 21:26: Troponin T Hi Sens 4Hr 10 03/06/25 05:19: WBC 7.0, RBC 3.66 L, Hgb 12.5, Hct 35.9 L, MCV 98.1, MCH 34.2 H, MCHC 34.8, RDW Std Deviation 49.4 H, RDW Coeff of Bradley 13.7, Plt Count 179, MPV 9.0, Immature Gran % (Auto) 0.300, Neut % (Auto) 50.2, Lymph % (Auto) 38.7, [place] % (Auto) 7.9, Eos % (Auto) 2.6, Baso % (Auto) 0.3, Absolute Neuts (auto) 3.5, Absolute Lymphs (auto) 2.71, Nucleated RBC % 0, Sodium 141, Potassium 3.7, Chloride 105, Carbon Dioxide 23.6, Anion Gap 12, BUN 15, Creatinine 0.89, Estim Creat Clear Calc 46.09 L, Est GFR (MDRD) Non-Af 66, BUN/Creatinine Ratio 16.8, Glucose 113 H, Hemoglobin A1c 5.6, Calcium 9.5, Magnesium 2.0, Triglycerides 309 H, Cholesterol 261 H, LDL Cholesterol, Calc 166, VLDL Cholesterol 62 H, HDL Cholesterol 36 L, Cholesterol/HDL Ratio 7.27, Vitamin B12 288, TSH 1.710 Radiography Diagnostic Testing: Radiology Impression Brain CT 03/05/25 15:50 IMPRESSION: No acute intracranial abnormalities. Stroke Alert: No acute intracranial abnormalities. The critical findings in the findings and impression above were relayed directly by me by telephone [email or web address] On 03/05/2025 at 4:06 pm with readback verification. Reading Location: [facility] Head/Neck CTA 03/05/25 15:50 IMPRESSION: No hemodynamically significant stenosis in the head and neck. Reading Location: [facility] Chest X-Ray 03/05/25 16:40 IMPRESSION: No Acute Findings. Reading [facility] Brain MRI 03/05/25 17:37 IMPRESSION: Moderate generalized atrophy. Mild chronic microvascular ischemic changes. Reading Location: [id number] Cervical Spine MRI 03/05/25 17:43 IMPRESSION: Spondylosis. Degenerative disc disease. Reading Location[facility] Lumbar Spine MRI 03/05/25 17:43 IMPRESSION: Postsurgical changes as detailed along with multilevel degenerate changes without significant canal stenosis. Limited evaluation of the foramina at L5-S1 with suspected abutment upon the bilateral L5 exiting nerves. Reading Location: [facility] Thoracic Spine MRI 03/05/25 17:43 IMPRESSION: Unremarkable MRI of the thoracic spine. Reading Location: [facility] Physical Exam Const alert and no apparent distress Constitutional Narrative: Pleasant. Afebrile. HEENT head/scalp atraumatic and moist oral mucous membranes Extremity normal to inspection Neuro oriented x3, CN's II-XII intact bilaterally and moves all extremities Neuro Narrative: Muscle strength is 5-5 in upper extremities bilaterally, right lower extremity and 4 out of 5 in the left lower extremity. Sensation is grossly intact throughout. Sensorium / Orientation: awake and alert Coordination / Balance: [id number] test normal Speech: speech normal Assessment & Plan Assessment/Plan (1) Left-sided weakness: PLAN: Plan Slurred speech, left-sided weakness MRI brain, C, T and L spine negative UA negative. Seen by neurology not felt to be stroke. With the negative imaging. Maynard to be multifactorial symptoms due to polyneuropathy, radiculopathy and concern for polypharmacy. Neurology is recommending outpatient follow-up with Dr. Martinez. Chronic medical conditions: COPD-Continue home inhalers-Incentive spirometer GERD-Continue PPI Restless leg syndrome-continue patient's home medication regimen Hypertension- Holding home medications as above Hx Crohn's disease- Follows outpatient with GI DVT ppx: SCDs Charges/Coding Visit Charges Inpatient E&M: 32544 Subs Hosp L2 NIHSS NIHSS Nursing Documentation NIHSS Nursing Documentation: NIHSS: Ischemic Stroke/TIA Start: 03/05/25 17:49 Text: For PCU Patients: NIH and Neuro Check every 4 Status: Complete hours, PRN and with change in RN caregiver. Freq: [id number] Protocol: Activity Type Activity Date Activity User E-sign Co-sign Detail Recorded Client Recorded Date Recorded By Document 03/05/25 20:06 ADR [id number] 03/05/25 20:20 ADR 03/05/25 20:06 NIH Stroke Scale [NIHSS] A score of 0 is normal or asymptomatic . Total possible score is 42. Inpatient: RN or Physician to activate a stroke alert for onset of new stroke symptoms or with NIHSS increase >/= 3 points. Following change in neurological status, NIHSS will be performed per physician order or more frequently PRN. -1a. Level of Consciousness 0 - Alert; keenly responsive -1b. LOC Questions 0 - Answers BOTH questions correctly -1c. LOC Commands 0 - Performs BOTH tasks correctly -2. Best Gaze 0 - Normal -3. Visual 0 - No visual loss -4. Facial Palsy 0 - Normal symmetrical movements -5a. Left Arm 1 - Drift; arm drifts downward but doesn?t hit the bed -5b. Right Arm 0 - No drift; arm holds 90 ( or 45) degrees for full 10 seconds -6a. Left Leg 1 - Drift; leg falls by the end of 5- seconds, but does not hit bed -6b. Right Leg 1 - Drift; leg falls by the end of 5- seconds, but does not hit bed -7. Limb Ataxia 0 - Absent -8. Sensory 1 - Mild-to- moderate sensory loss; -9. Best Language 0 - No aphasia; normal -10. Dysarthria 0 - Normal -11. Extinction and Inattention 0 - No abnormality -Total 4 Query Text:A score of 0 is normal or asymptomatic. Total possible score is 42 . ED: Notify Physician for NIHSS increase by > / = 3 points. Inpatient: RN or Physician to activate a stroke alert for NIHSS increase of > / = 3 points. Coma Scale [Assess] -Eye Opening Spontaneous -Motor Obeys Commands -Verbal Oriented [Total] -Coma Scale Total 15
[2025-03-06 09:31] VITALS: BP 131/80; PULSE 69; RESP 18; TEMP 36.8; O2SAT 98
[2025-03-06 10:14] VITALS: PULSE 76; RESP 18
[2025-03-06 10:15] VITALS: O2SAT 97
--- NOTE | 2025-03-06 10:18 | CASEMGMT ---
Social Work PHQ-9 not completed, as per physician the MRI for stroke was negative. MAEGAN Webb
--- NOTE | 2025-03-06 11:23 | CON.PCM.NE_ITS ---
Assessment and Plan: Neuro
--- NOTE | 2025-03-06 11:23 | NEURO.CONS ---
Assessment and Plan: Neuro Assessment/Plan SHANNON MCCORD is a 79 F with a past medical history of dementia, neuropathy, spinal disease, CKD being evaluated by Teleneurology for confusion and difficulty walking with LS weakness. No stroke. Symptoms are multifactorial with chronic polyneuropathy and radiculopathy contributing greatly and her age and decreased kidney function putting her at significant risk of polypharmacy. Discussed that we do not have a cure for neuropathy. Titrating her gabapentin or other neuropathic pain meds will have to be done by trial and error over time. THey are very amenable to seeing Dr. Martinez, outpatient neurologist, again. Discussed seeing spine surgeon (I would recommend against surgery) and they had independently and previously decided not to go that route - it remains an option if they change their mind. Diagnosis: polyneuropathy, radiculopathy, at risk of polypharmacy, cognitive impairment Plan: - PT evaluation and rehab as necessary - amb referral to outaptient neurologist Dr. Martinez - agree with decrease of gabapentin: 300 mg TID would be reasonable but tolerability may car changer time and trial and error is the only way to measure benefit vs SE I personally attended this patient and spent a total time of 30 minutes evaluating this patient including clinical assessment, review of chart, medical history imaging, and determining appropriate treatment and workup. Gautam Larsen MD Layboy Tender, [facility] HPI Consult Data Date of Consult: 03/06/25 HPI Narrative HPI Narrative: SHANNNO MCCORD, is a 79 F (originally hebrew-speaking, fluent in senegalese) with history of lumbar fusion and previous diagnoses of Crohn's, polyneuropathy, bilateral lumbar radicolopathy, dementia, HTN who presents with confusion and difficulty walking and LS weakness. Evaluated by telestroke, no infarct found, MRI imaging of entire neuro-axis showed multi-level spinal disease which was known. is with her and adds to history but she is a willing and able historian, though tearful. THey note yesterday she was totally out of it, confused as could be, though they note confusion has been intermitted over last 2 weeks. Lives with at home. They report she is back to baseline today. She is most concerned with her neuropathy and whether anything can be done to fix it. She reports she does sleep with half tab (5 mg) of ambien. Review of chart shows previous medications for her neuropathy included amitriptyline, duloxetine, pregabalin, all discontineud for inefficacy or SE. Gabapentin reduced by inpatient team with concern it was contributing to AMS. SHe has significantly reduced kidney function (GFRd < 50). Discussed her spine at length: they report discussing with spine surgeon and pain commercial loan specialist who recommeded against further surgery. [facility], [facility] Medical History Wears glasses Anxiety Ambulates with cane Rheumatoid arthritis History of Crohn's disease Back pain Restless legs TIA (transient ischemic attack) History of IBS Former smoker Shortness of breath on exertion Leg cramps History of edema History of echocardiogram History of stress test Memory change Altered bowel habits Neuropathic pain of both feet Spondylolisthesis, lumbar region Colonoscopy planned Stroke Peripheral nerve disease Hypertension Hiatal hernia Dyslipidemia COPD (chronic obstructive pulmonary disease) Home Medications ?Medication ?Instructions ?Recorded ?Last Taken ?Type losartan 100 mg tablet 100 mg PO DAILY 08/20/20 09/17/24 06:00 History umeclidinium 62.5 mcg-vilanterol 1 inh inhalation DAILY 05/30/22 Unknown History 25 mcg/actuation powdr for inhalation (Anoro Ellipta) zolpidem 10 mg tablet 10 mg PO QHS PRN insomnia 05/30/22 Unknown History epinephrine 0.3 mg/0.3 mL 0.3 mg (0.3 mL) IM Q10M PRN PRN 02/27/24 Unknown Rx injection, auto-injector anaphylaxis #2 ea gabapentin 600 mg tablet 600 mg PO TID 07/30/24 Unknown History meloxicam 7.5 mg tablet 7.5 mg PO QDAY 07/30/24 Unknown History cetirizine 10 mg tablet 10 mg PO QDAY PRN ALLERGY 10/08/24 Unknown History lansoprazole 30 mg capsule,delayed 30 mg PO BID #60 caps 10/08/24 Unknown Rx release ropinirole 2 mg tablet 2 mg PO QDAY 10/08/24 Unknown History diphenoxylate-atropine 2.5 1 tab PO BID PRN diarrhea #60 tabs 01/05/25 Unknown Rx mg-0.025 mg tablet (Lomotil) Hyoscamine 03/05/25 Unknown History loratadine 10 mg tablet 10 mg PO PRN 03/05/25 Unknown History (Allerclear) Allergy/AdvReac Type Severity Reaction Status Date / Time infliximab-abda (From Allergy Severe Anaphylaxis Verified 03/05/25 15:47 Renflexis) codeine AdvReac Intermediate Nausea Verified 03/05/25 15:47 diphenhydramine (From AdvReac Intermediate Nausea Verified 03/05/25 15:47 Benadryl) Family History Other COPD (chronic obstructive pulmonary disease) CVA (cerebral vascular accident) Colon cancer Heart disease Surgical History H/O: hysterectomy H/O bilateral oophorectomy H/O lithotripsy History of esophagogastroduodenoscopy (EGD) History of back surgery Social History Smoking Status: Former smoker alcohol intake: never Vital Signs Vital Signs Vital Signs: 03/05/25 15:42 03/05/25 15:42 03/05/25 15:51 Temperature 98.2 F 98.2 F Temperature Source Oral Oral Pulse Rate 100 100 Pulse Strength Respiratory Rate 16 16 Respiratory Effort Respiratory Depth Respiratory Pattern Blood Pressure 203/153 H 203/153 H Blood Pressure Mean 169 169 Blood Pressure Source Blood Pressure Position Blood Pressure Location Pulse Ox 99 99 Oxygen Delivery Method Room Air Room Air Room Air 03/05/25 16:00 03/05/25 16:30 03/05/25 16:42 Temperature Temperature Source Pulse Rate 85 86 82 Pulse Strength Respiratory Rate 16 19 H 18 Respiratory Effort Respiratory Depth Respiratory Pattern Blood Pressure 157/97 H 150/83 H Blood Pressure Mean 117 105 Blood Pressure Source Blood Pressure Position Blood Pressure Location Pulse Ox 98 98 Oxygen Delivery Method Room Air Room Air 03/05/25 16:45 03/05/25 16:45 03/05/25 17:00 Temperature Temperature Source Pulse Rate 85 81 Pulse Strength Respiratory Rate 16 21 H Respiratory Effort Respiratory Depth Respiratory Pattern Blood Pressure 108/84 H 155/109 H Blood Pressure Mean 92 116 Blood Pressure Source Blood Pressure Position Blood Pressure Location Pulse Ox 99 97 Oxygen Delivery Method 03/05/25 17:14 03/05/25 17:15 03/05/25 17:30 Temperature 98.2 F Temperature Source Pulse Rate 85 79 78 Pulse Strength Respiratory Rate 16 22 H 18 Respiratory Effort Respiratory Depth Respiratory Pattern Blood Pressure 155/109 H 141/120 H 144/77 H Blood Pressure Mean 124 129 99 Blood Pressure Source Blood Pressure Position Blood Pressure Location Pulse Ox 99 98 Oxygen Delivery Method Room Air 03/05/25 21:00 03/05/25 22:00 03/05/25 22:00 Temperature 97.4 F L Temperature Source Temporal Pulse Rate 76 Pulse Strength Normal (2+) Respiratory Rate 16 Respiratory Effort Normal Non-Labored Respiratory Depth Normal Respiratory Pattern Normal Blood Pressure 151/96 H Blood Pressure Mean 114 Blood Pressure Source Monitor Blood Pressure Position Semi-Fowlers Blood Pressure Location Left Arm Pulse Ox 100 Oxygen Delivery Method Room Air Room Air 03/06/25 05:30 03/06/25 09:31 03/06/25 10:14 Temperature 97.4 F L 98.2 F Temperature Source Temporal Oral Pulse Rate 80 69 76 Pulse Strength Respiratory Rate 16 18 18 Respiratory Effort Respiratory Depth Respiratory Pattern Normal Blood Pressure 133/83 H 131/80 H Blood Pressure Mean 99 97 Blood Pressure Source Monitor Monitor Blood Pressure Position Semi-Fowlers Semi-Fowlers Blood Pressure Location Left Arm Left Arm Pulse Ox 98 98 Oxygen Delivery Method Room Air Room Air 03/06/25 10:15 Temperature Temperature Source Pulse Rate Pulse Strength Respiratory Rate Respiratory Effort Respiratory Depth Respiratory Pattern Blood Pressure Blood Pressure Mean Blood Pressure Source Blood Pressure Position Blood Pressure Location Pulse Ox 97 Oxygen Delivery Method Room Air Weight Weight: 67.268 kg Body Mass Index (BMI) 26.6 EEG Results Procedure Details EEG Procedure Details: SHANNON MCCORD is a 79 year old F with a past medical history of , who presents for evaluation of Electroencephalogram on DATE at TIME Physical Exam Neuro Neuro Narrative: AOx3, language fluent with Persian accent, no dysarthria, EOMI, tongue midline, Facial sensation normalized since yesterday (LS reportedly less), head rotation intact, Strength 5/5 at SA, EE, EF, Lockstitch Topstitcher. LLE HF/DF/PF 4/5. RLE HF/DF/PF 5/5. LLE decreased to light touch, RLE comparatively greater. Lab / Micro Data 03/06/25 05:19 03/06/25 05:19 Labs: Laboratory Results - last 24 hr 03/05/25 15:45: WBC 8.7, RBC 3.99 L, Hgb 13.9, Hct 38.9, MCV 97.5, MCH 34.8 H, MCHC 35.7, RDW Std Deviation 48.7 H, RDW Coeff of Bradley 13.5, Plt Count 219, MPV 8.7, Immature Gran % (Auto) 0.200, Neut % (Auto) 53.8, Lymph % (Auto) 36.3, [place] % (Auto) 6.6, Eos % (Auto) 2.5, Baso % (Auto) 0.6, Absolute Neuts (auto) 4.7, Absolute Lymphs (auto) 3.15, Nucleated RBC % 0, PT 12.6, INR 0.9, APTT 30.8, Sodium 139, Potassium 4.2, Chloride 105, Carbon Dioxide 25.0, Anion Gap 9, BUN 18, Creatinine 0.97, Estim Creat Clear Calc 41.65 L, Est GFR (MDRD) Non-Af 59 L, BUN/Creatinine Ratio 18.4, Glucose 130 H, Calcium 9.6, Troponin T High Sens 9 03/05/25 17:00: Urine Color Yellow, Urine Clarity Clear, Urine pH 6.0, Ur Specific [place] 1.005, Urine Protein 15 H, Urine Glucose (UA) Normal, Urine Ketones Negative, Urine Occult Blood Negative, Urine Nitrite Negative, Urine Bilirubin Negative, Urine Urobilinogen Normal, Ur Leukocyte Esterase Negative, Urine RBC 0 SEEN, Urine WBC 0-5 SEEN, Ur Squamous Epith Cells 0 SEEN, Urine Bacteria 0 SEEN, Urine Mucus 0 SEEN 03/05/25 19:47: Troponin T Hi Sens 2 Hr 11 03/05/25 21:26: Troponin T Hi Sens 4Hr 10 03/06/25 05:19: WBC 7.0, RBC 3.66 L, Hgb 12.5, Hct 35.9 L, MCV 98.1, MCH 34.2 H, MCHC 34.8, RDW Std Deviation 49.4 H, RDW Coeff of [place] 13.7, Plt Count 179, MPV 9.0, Immature Gran % (Auto) 0.300, Neut % (Auto) 50.2, Lymph % (Auto) 38.7, [place] % (Auto) 7.9, Eos % (Auto) 2.6, Baso % (Auto) 0.3, Absolute Neuts (auto) 3.5, Absolute Lymphs (auto) 2.71, Nucleated RBC % 0, Sodium 141, Potassium 3.7, Chloride 105, Carbon Dioxide 23.6, Anion Gap 12, BUN 15, Creatinine 0.89, Estim Creat Clear Calc 46.09 L, Est GFR (MDRD) Non-Af 66, BUN/Creatinine Ratio 16.8, Glucose 113 H, Hemoglobin A1c 5.6, Calcium 9.5, Magnesium 2.0, Triglycerides 309 H, Cholesterol 261 H, LDL Cholesterol, Calc 166, VLDL Cholesterol 62 H, HDL Cholesterol 36 L, Cholesterol/HDL Ratio 7.27, Vitamin B12 288, TSH 1.710 Imaging Radiology Impression Brain CT 03/05/25 15:50 IMPRESSION: No acute intracranial abnormalities. Stroke Alert: No acute intracranial abnormalities. The critical findings in the findings and impression above were relayed directly by me by telephone [employer] On 03/05/2025 at 4:06 pm with readback verification. Reading Location: [id number] Head/Neck CTA 03/05/25 15:50 IMPRESSION: No hemodynamically significant stenosis in the head and neck. Reading Location: [id number] Chest X-Ray 03/05/25 16:40 IMPRESSION: No Acute Findings. Reading [facility] Brain MRI 03/05/25 17:37 IMPRESSION: Moderate generalized atrophy. Mild chronic microvascular ischemic changes. Reading Location: [id number] Echocardiogram 03/05/25 17:37 Interpretation Summary The estimated ejection fraction is 60-65 %. Mild aortic incompetence No significant change from previous echo Ordering Physician: Myrna Garcia Performed By: Elisha Phillips RDCS Cervical Spine MRI 03/05/25 17:43 IMPRESSION: Spondylosis. Degenerative disc disease. Reading Location: [place] [id number] Lumbar Spine MRI 03/05/25 17:43 IMPRESSION: Postsurgical changes as detailed along with multilevel degenerate changes without significant canal stenosis. Limited evaluation of the foramina at L5-S1 with suspected abutment upon the bilateral L5 exiting nerves. Reading Location: [facility] Thoracic Spine MRI 03/05/25 17:43 IMPRESSION: Unremarkable MRI of the thoracic spine. Reading Location: [facility] Active Medications Active Medications Active Medications: Current Medications Generic Name Dose Route Start Last Admin Trade Name Freq PRN Reason Stop Dose Admin Acetaminophen 650 mg 03/05/25 17:49 03/06/25 06:21 Acetaminophen 325 Mg Tablet PO 650 mg Q6H PRN PRN Administration Pain 1-10 Or Fever >100.7 Albuterol Sulfate 2.5 mg 03/05/25 17:49 Albuterol 2.5 Mg/3 Ml Vial.Neb. INHALATION Q2H PRN PRN SOB &/OR WHEEZING Albuterol/Ipratropium 3 ml 03/06/25 10:00 03/06/25 10:11 Ipratropium/Albuterol Sulfate 3 Ml Ampul.Neb INHALATION 3 ml DAILY LEONA Administration Aspirin 81 mg 03/06/25 08:00 03/06/25 09:41 Aspirin 81 Mg Tab.Chew PO 81 mg BREAKFAST LEONA Administration Atorvastatin Calcium 40 mg 03/05/25 22:00 03/05/25 21:53 Atorvastatin Calcium 40 Mg Tablet PO 40 mg QHS LEONA Administration Diphenoxylate HCl/Atropine 1 tablet 03/05/25 17:49 Diphenoxylate/Atrop 1 Tablet PO BID PRN DIARRHEA Hydralazine HCl 5 mg 03/05/25 17:49 Hydralazine 20 Mg/Ml Vial IV 03/06/25 17:49 Q30M PRN maintain BP parameters with HR <60 Sodium Chloride 500 mls @ 999 mls/hr 03/05/25 16:00 IV .Q31M ONE Labetalol HCl 20 mg 03/05/25 15:50 Labetalol 20 Mg/4 Ml Vial IV 03/06/25 15:50 X1 PRN BLOOD PRESSURE Labetalol HCl 10 - 20 mg 03/05/25 17:49 Labetalol 20 Mg/4 Ml Vial IV 03/06/25 17:49 Q10M PRN PRN maintain BP parameters with HR >/=60 Lansoprazole 30 mg 03/05/25 22:00 03/06/25 09:41 Lansoprazole 15 Mg Capsule.Dr NG 30 mg BID LEONA Administration Melatonin 10 mg 03/05/25 17:49 03/05/25 21:53 Melatonin 10 Mg Tablet PO 10 mg QHS PRN PRN Administration INSOMNIA Ondansetron HCl 4 mg 03/05/25 17:49 Ondansetron 4 Mg/2 Ml Vial IV Q6H PRN NAUSEA/VOMITING Pramipexole Dihydrochloride 1 mg 03/05/25 17:54 03/06/25 09:41 Pramipexole Di-Hcl 1 Mg Tablet PO 1 mg DAILY LEONA Administration Senna/Docusate Sodium 2 tablet 03/05/25 17:49 Senna/Docusate Sodium 1 Tablet PO BID PRN PRN Constipation NIHSS NIHSS Nursing Documentation NIHSS Nursing Documentation: NIHSS: Ischemic Stroke/TIA Start: 03/05/25 17:49 Text: For PCU Patients: NIH and Neuro Check every 4 Status: Complete hours, PRN and with change in RN caregiver. Freq: [id number] Protocol: Activity Type Activity Date Activity User E-sign Co-sign Detail Recorded Client Recorded Date Recorded By Document 03/05/25 20:06 ADR [id number] 03/05/25 20:20 ADR 03/05/25 20:06 NIH Stroke Scale [NIHSS] A score of 0 is normal or asymptomatic . Total possible score is 42. Inpatient: RN or Physician to activate a stroke alert for onset of new stroke symptoms or with NIHSS increase >/= 3 points. Following change in neurological status, NIHSS will be performed per physician order or more frequently PRN. -1a. Level of Consciousness 0 - Alert; keenly responsive -1b. LOC Questions 0 - Answers BOTH questions correctly -1c. LOC Commands 0 - Performs BOTH tasks correctly -2. Best Gaze 0 - Normal -3. Visual 0 - No visual loss -4. Facial Palsy 0 - Normal symmetrical movements -5a. Left Arm 1 - Drift; arm drifts downward but doesn?t hit the bed -5b. Right Arm 0 - No drift; arm holds 90 ( or 45) degrees for full 10 seconds -6a. Left Leg 1 - Drift; leg falls by the end of 5- seconds, but does not hit bed -6b. Right Leg 1 - Drift; leg falls by the end of 5- seconds, but does not hit bed -7. Limb Ataxia 0 - Absent -8. Sensory 1 - Mild-to- moderate sensory loss; -9. Best Language 0 - No aphasia; normal -10. Dysarthria 0 - Normal -11. Extinction and Inattention 0 - No abnormality -Total 4 Query Text:A score of 0 is normal or asymptomatic. Total possible score is 42 . ED: Notify Physician for NIHSS increase by > / = 3 points. Inpatient: RN or Physician to activate a stroke alert for NIHSS increase of > / = 3 points. Coma Scale [Assess] -Eye Opening Spontaneous -Motor Obeys Commands -Verbal Oriented [Total] -Coma Scale Total 15
--- NOTE | 2025-03-06 12:02 | CASEMGMT ---
Addendum entered by Tina Warren 03/06/25 12:16: Social Work Pt would like to d/c, SW reached out to physician. He inquired pt would need any services. SW did check back again w/pt. She feels she can manage at home, states has been having this foot issue for a while and can manage at home. Pt declined HHC referral, and declined outpt PT referral. Pt states she plans to follow up w/neurology an see what the neurologist recommends. SW updated physician. MAEGAN Webb Original Note: Social Work SW spoke w/pt in room regarding POA, she states is POA, he will bring in documents tomorrow if pt is still here. Pt is hopeful to return home today. Pt denies any homegoing needs. She states has all DME that would be needed. states he has one leg and they have all DME needed. Pt has a walker she can use. states the home is handicap accessible. Pt not interested in HHC or SNF at this time, feels can manage at home. SW/CM remains available should any needs arise. MAEGAN Webb
--- NOTE | 2025-03-06 12:11 | PCM.DC.SUM ---
Providers Date of Admission: 03/05/25 Primary Care Physician: Dr. Maribell Sanchez MD Consultations 03/05/25 17:49 Consult: Tele-Neurology Routine Consulting Provider: [facility] Reason for Consult: Acute Ischemic Stroke/TIA EMERGENT Consult: No MD Notified: Yes Date Notified: 03/05/25 Time Notified: 17:54 Method of Notification: Answering Service Nursing Unit Staff Notify [facility] of Tele-Neurology Consult: Yes Reason For Visit: CVA RULE OUT Diagnosis Discharge Diagnosis (1) Left-sided weakness: Status: Acute Code(s): R53.1 - Weakness Plan Slurred speech, left-sided weakness MRI brain, C, T and L spine negative UA negative. Seen by neurology not felt to be stroke, particuarly with the negative imaging. [place] to be multifactorial symptoms due to polyneuropathy, radiculopathy and concern for polypharmacy. Neurology is recommending outpatient follow-up with Dr. Martinez. Patient later explained that she was having foot issues even before this admission. Chronic medical conditions: COPD-Continue home inhalers-Incentive spirometer GERD-Continue PPI Restless leg syndrome-continue patient's home medication regimen Hypertension- Holding home medications as above Hx Crohn's disease- Follows outpatient with GI DVT ppx: SCDs Medications at Discharge Home Medications losartan 100 mg tablet 100 mg PO DAILY 08/20/20 umeclidinium 62.5 mcg-vilanterol 25 mcg/actuation powdr for inhalation (Anoro Ellipta) 1 inh inhalation DAILY 05/30/22 zolpidem 10 mg tablet 10 mg PO QHS PRN insomnia 05/30/22 epinephrine 0.3 mg/0.3 mL injection, auto-injector 0.3 mg (0.3 mL) IM Q10M PRN PRN anaphylaxis #2 ea 02/27/24 gabapentin 600 mg tablet 600 mg PO TID 07/30/24 meloxicam 7.5 mg tablet 7.5 mg PO QDAY 07/30/24 cetirizine 10 mg tablet 10 mg PO QDAY PRN ALLERGY 10/08/24 lansoprazole 30 mg capsule,delayed release 30 mg PO BID #60 caps 10/08/24 ropinirole 2 mg tablet 2 mg PO QDAY 10/08/24 diphenoxylate-atropine 2.5 mg-0.025 mg tablet (Lomotil) 1 tab PO BID PRN diarrhea #60 tabs 01/05/25 Hyoscamine 03/05/25 loratadine 10 mg tablet (Allerclear) 10 mg PO PRN 03/05/25 atorvastatin 40 mg tablet 40 mg PO QHS #30 tabs 03/06/25 Hospital Course Operations None Procedures None Summary of Care Provided Hospital Course: Patient presents with left-sided weakness. Patient underwent MRI of the brain as well as cervical, thoracic and lumbar spine that was all negative. Seen by neurology who felt that her symptoms are multifactorial due to chronic polyneuropathy, radiculopathy compounded by age and possible polypharmacy. Recommend outpatient follow-up with neurology. Patient will be discharged home in stable condition. Weight / BMI Weight Weight: 67.268 kg Body Mass Index (BMI) 26.6 ABG / Lab / Microbiology Data 03/06/25 05:19 03/06/25 05:19 Laboratory: Laboratory Results - last 24 hr 03/05/25 15:45: WBC 8.7, RBC 3.99 L, Hgb 13.9, Hct 38.9, MCV 97.5, MCH 34.8 H, MCHC 35.7, RDW Std Deviation 48.7 H, RDW Coeff of Bradley 13.5, Plt Count 219, MPV 8.7, Immature Gran % (Auto) 0.200, Neut % (Auto) 53.8, Lymph % (Auto) 36.3, Gates % (Auto) 6.6, Eos % (Auto) 2.5, Baso % (Auto) 0.6, Absolute Neuts (auto) 4.7, Absolute Lymphs (auto) 3.15, Nucleated RBC % 0, PT 12.6, INR 0.9, APTT 30.8, Sodium 139, Potassium 4.2, Chloride 105, Carbon Dioxide 25.0, Anion Gap 9, BUN 18, Creatinine 0.97, Estim Creat Clear Calc 41.65 L, Est GFR (MDRD) Non-Af 59 L, BUN/Creatinine Ratio 18.4, Glucose 130 H, Calcium 9.6, Troponin T High Sens 9 03/05/25 17:00: Urine Color Yellow, Urine Clarity Clear, Urine pH 6.0, Ur Specific Cedar 1.005, Urine Protein 15 H, Urine Glucose (UA) Normal, Urine Ketones Negative, Urine Occult Blood Negative, Urine Nitrite Negative, Urine Bilirubin Negative, Urine Urobilinogen Normal, Ur Leukocyte Esterase Negative, Urine RBC 0 SEEN, Urine WBC 0-5 SEEN, Ur Squamous Epith Cells 0 SEEN, Urine Bacteria 0 SEEN, Urine Mucus 0 SEEN 03/05/25 19:47: Troponin T Hi Sens 2 Hr 11 03/05/25 21:26: Troponin T Hi Sens 4Hr 10 03/06/25 05:19: WBC 7.0, RBC 3.66 L, Hgb 12.5, Hct 35.9 L, MCV 98.1, MCH 34.2 H, MCHC 34.8, RDW Std Deviation 49.4 H, RDW Coeff of Bradley 13.7, Plt Count 179, MPV 9.0, Immature Gran % (Auto) 0.300, Neut % (Auto) 50.2, Lymph % (Auto) 38.7, Gates % (Auto) 7.9, Eos % (Auto) 2.6, Baso % (Auto) 0.3, Absolute Neuts (auto) 3.5, Absolute Lymphs (auto) 2.71, Nucleated RBC % 0, Sodium 141, Potassium 3.7, Chloride 105, Carbon Dioxide 23.6, Anion Gap 12, BUN 15, Creatinine 0.89, Estim Creat Clear Calc 46.09 L, Est GFR (MDRD) Non-Af 66, BUN/Creatinine Ratio 16.8, Glucose 113 H, Hemoglobin A1c 5.6, Calcium 9.5, Magnesium 2.0, Triglycerides 309 H, Cholesterol 261 H, LDL Cholesterol, Calc 166, VLDL Cholesterol 62 H, HDL Cholesterol 36 L, Cholesterol/HDL Ratio 7.27, Vitamin B12 288, TSH 1.710 Microbiology: Microbiology 03/06/25 10:25 Mucosa - Nose Coronavirus COVID-19 PCR - Final Radiography Diagnostic Testing: Radiology Impression Brain CT 03/05/25 15:50 IMPRESSION: No acute intracranial abnormalities. Stroke Alert: No acute intracranial abnormalities. The critical findings in the findings and impression above were relayed directly by me by telephone Cheryl On 03/05/2025 at 4:06 pm with readback verification. Reading Location: [id number] Head/Neck CTA 03/05/25 15:50 IMPRESSION: No hemodynamically significant stenosis in the head and neck. Reading Location: [facility] Chest X-Ray 03/05/25 16:40 IMPRESSION: No Acute Findings. Reading [facility] Brain MRI 03/05/25 17:37 IMPRESSION: Moderate generalized atrophy. Mild chronic microvascular ischemic changes. Reading Location: [id number] Echocardiogram 03/05/25 17:37 Interpretation Summary The estimated ejection fraction is 60-65 %. Mild aortic incompetence No significant change from previous echo Ordering Physician: Myrna Garcia Performed By: Elisha Phillips RDCS Cervical Spine MRI 03/05/25 17:43 IMPRESSION: Spondylosis. Degenerative disc disease. Reading Location: [place] [id number] Lumbar Spine MRI 03/05/25 17:43 IMPRESSION: Postsurgical changes as detailed along with multilevel degenerate changes without significant canal stenosis. Limited evaluation of the foramina at L5-S1 with suspected abutment upon the bilateral L5 exiting nerves. Reading Location: [facility] Thoracic Spine MRI 03/05/25 17:43 IMPRESSION: Unremarkable MRI of the thoracic spine. Reading Location: [facility] D/C Instructions Discharge Activity: Return to Normal Activity DC O2, CPAP, BIPAP Needs Home O2 Discharge instructions: No Meaningful Use Info Meaningful Use Meaningful Use Diagnoses (Choose all that apply): None applicable Discharge Plan Admission Admit Date/Time: 03/05/25 17:23 Primary Reason for Your Visit: weakness. Attending Provider: Nilson Mendoza Primary Care Provider: Maribell Sanchez Consulting Providers: Shen Freire; Sameer Azul; Deborah Lombardi; Joyce Brambila; Sarah Sharp; Landon Zee; Jazlyn Barron; Levi Earl; Rudy Arboleda; Peter Arzola; Verna Smith; Nadege Valderrama; Shorty Montgomery; Georgette Barraza; Santana Wood; Lamar Penaloza; Gautam Larsen; Kaye Morrison; Pratik Chandler; Anai Fitch; Diallo Briseno; Myrna Garcia Discharge Orders/Prescriptions Prescriptions: New atorvastatin 40 mg Tablet 40 mg PO QHS Qty: 30 0RF Continued Anoro Ellipta 62.5-25 mcg/actuation blister with device 1 inh inhalation DAILY zolpidem 10 mg tablet 10 mg PO QHS PRN (Reason: insomnia) meloxicam 7.5 mg tablet 7.5 mg PO QDAY gabapentin 600 mg tablet 600 mg PO TID cetirizine 10 mg tablet 10 mg PO QDAY PRN (Reason: ALLERGY) ropinirole 2 mg tablet 2 mg PO QDAY lansoprazole 30 mg capsule,delayed release(DR/EC) 30 mg PO BID Qty: 60 3RF Rx Instructions: Take 30minutes before eating breakfast and dinner. diphenoxylate-atropine [Lomotil] 2.5-0.025 mg tablet 1 tab PO BID PRN (Reason: diarrhea) Qty: 60 1RF losartan 100 MG tablet 100 mg PO DAILY epinephrine 0.3 mg/0.3 mL auto-injector 0.3 mg IM Q10M PRN PRN (Reason: anaphylaxis) Qty: 2 0RF Rx Instructions: for 2 doses loratadine [Allerclear] 10 mg tablet 10 mg PO PRN Hyoscamine Referrals / Follow Up: [facility] [Provider Group] - Within 1 Month Maribell Sanchez MD [Primary Care Provider, Internal Medicine] - Within 2 Weeks Disposition Disposition (needs filled in before D/C Order can be placed): Home, Self Care Charges/Coding Visit Charges Inpatient E&M: 95206 Disch Hosp
[2025-03-06 14:06] VITALS: BMI 26.6
== END 2025-03-06 14:08 | disposition home or self-care (01) ==
LOC: ED 17:00 → PCU 17:36
PROVIDERS: Admitting Provider Internal Medicine; Emergency Provider Emergency Medicine; PCP Internal Medicine
DX: R53.1 Weakness (principal); M06.9 Rheumatoid arthritis, unspecified; K50.90 Crohn's disease, unspecified, without complications; F03.90 Unspecified dementia, unspecified severity, without behavioral disturbance, psychotic disturbance, mood disturbance, and anxiety; J44.9 Chronic obstructive pulmonary disease, unspecified; R29.898 Other symptoms and signs involving the musculoskeletal system; R47.81 Slurred speech; I10 Essential (primary) hypertension; E78.5 Hyperlipidemia, unspecified; K21.9 Gastro-esophageal reflux disease without esophagitis; K44.9 Diaphragmatic hernia without obstruction or gangrene; F41.9 Anxiety disorder, unspecified; G25.81 Restless legs syndrome; G62.9 Polyneuropathy, unspecified; M47.26 Other spondylosis with radiculopathy, lumbar region; M48.062 Spinal stenosis, lumbar region with neurogenic claudication; Z79.899 Other long term (current) drug therapy; Z86.73 Personal history of transient ischemic attack (TIA), and cerebral infarction without residual deficits; Z87.891 Personal history of nicotine dependence; Z79.1 Long term (current) use of non-steroidal anti-inflammatories (NSAID)
CPT/HCPCS: 36415; 70450; 70496; 70498; 70551; 71045; 72141; 72146; 72148; 80048; 80061; 81001; 82607; 82962; 83036; 83735; 84443; 84484; 85025; 85610; 85730; 87086; 87088; 87633; 87635; 93005; 93306; 94640; 96374; 97162; 97166; 99221; 99285; Q9967; A4216; G0378